=== PATIENT | female | born 1985 | race Caucasian/White ===

== ENCOUNTER 2017-09-20 13:53 | Emergency (ER) | payer MEDICAID ==
[~2017-09-20] VITALS: Ht 172.7 cm; Wt 96.7 kg
[~2017-09-20 13:53] MED LIST: ESCI20TA PO; GLYB2.5T4 PO; HYDR-569 PO; IBUP-1984 PO; LORA-512 PO; NAPR220C15 PO; ROSU20TA PO
[2017-09-20] MEDS ORDERED: ketorolac trometh inj. 60 MG/2 ML VIAL IM ONE (14:55)
[2017-09-20] MEDS ORDERED: ONDA4TAB9 SL (14:55)
[2017-09-20] MEDS ORDERED: dexamethasone 4mg tablet PO ONE (14:55)
[2017-09-20] MEDS ORDERED: VAL5T PO (14:55)
[2017-09-20] MEDS ORDERED: CYCL-1 PO (14:55)
[2017-09-20] MEDS ORDERED: diazepam 5mg tablet PO ONE (14:55)
[2017-09-20] MEDS ORDERED: METH4TAB3 PO (14:55)
[2017-09-20 15:26] VITALS: BP 125/65
== END 2017-09-20 15:27 | disposition home or self-care (01) ==
LOC: ER 13:58
DX: G89.29 Other chronic pain (principal); M25.551 Pain in right hip; M54.31 Sciatica, right side; G43.909 Migraine, unspecified, not intractable, without status migrainosus; Z88.0 Allergy status to penicillin; Z88.1 Allergy status to other antibiotic agents; Z79.899 Other long term (current) drug therapy
CPT/HCPCS: 96372; 99283; J1885; J8540

== ENCOUNTER 2017-09-23 17:07 | Inpatient (IN) | payer MEDICAID ==
[~2017-09-23] VITALS: Ht 172.7 cm; Wt 84.5 kg
[~2017-09-23 17:07] MED LIST changes: +CYCL-1 PO; +METH4TAB3 PO; +ONDA4TAB9 SL; +VAL5T PO; +etomidate 2mg/ml inj. ONE; +sod chloride 0.9% 10ml flush syringe IV ONE
[2017-09-23 17:42] LABS: BASOPHILS % (AUTO) 0 % (0-1); EOSINOPHILS % (AUTO) 0.1 % (0-6); HEMATOCRIT 44.4 % (35.0-45.0); HEMOGLOBIN 14.9 g/dl (12.0-16.0); LYMPHOCYTES # (AUTO) 0.3 X10'3 (1.1-4.8); LYMPHOCYTES % (AUTO) 2.7 % (21-51); MEAN CORPUSCULAR HEMOGLOBIN 28.4 PG (27.0-31.0); MEAN CORPUSCULAR HGB CONC 33.6 % (33.0-36.5); MEAN CORPUSCULAR VOLUME 84.6 FL (78-98); MEAN PLATELET VOLUME 7.9 FL (7.4-10.4); MONOCYTES # (AUTO) 0.1 X10'3 (0-0.9); MONOCYTES % (AUTO) 0.6 % (2-12); NEUTROPHILS # (AUTO) 11.6 X10'3 (1.8-7.7); NEUTROPHILS % (AUTO) 96.6 % (42-75); PLATELET COUNT 149 X10'3 (140-440); RED BLOOD COUNT 5.25 X10'6 (4.20-5.60); RED CELL DISTRIBUTION WIDTH 14.2 % (11.5-14.5)
[2017-09-23 17:54] LABS: ANISOCYTOSIS 1+; MICROCYTOSIS 1+; PLATELET ESTIMATE NORMAL; TOTAL CELLS COUNTED 100; TOXIC VACUOLATION 1+
[2017-09-23 17:57] LABS: ALANINE AMINOTRANSFERASE 106 U/L (12-78); ALBUMIN 3.6 G/DL (3.4-5.0); ALBUMIN/GLOBULIN RATIO 0.8 (1.1-1.5); ALKALINE PHOSPHATASE 155 IU/L (46-116); ANION GAP 22 (8-16); ASPARTATE AMINO TRANSFERASE 83 U/L (10-37); BILIRUBIN,TOTAL 2.1 MG/DL (0.1-1.0); BLOOD UREA NITROGEN 36 MG/DL (7-18); BUN/CREATININE RATIO 14.1 (6.6-38.0); CALCIUM 8.1 MG/DL (8.5-10.1); CHLORIDE 89 MMOL/L (99-107); CREATININE 2.55 MG/DL (0.40-0.90); GLUCOSE 130 MG/DL (70-104); POTASSIUM 3.3 MMOL/L (3.5-5.1); SODIUM 129 MMOL/L (135-145); TOTAL CARBON DIOXIDE 17.7 MMOL/L (24-32); TOTAL PROTEIN 8.4 G/DL (6.4-8.2); eGFR 22 ML/MIN
[2017-09-23 18:07] LABS: D-DIMER 16.32 MG/L FEU (0-0.50); INR 2.1 INR; PARTIAL THROMBOPLASTIN TIME 42 SECONDS (22-32); PROTHROMBIN TIME 20.7 SECONDS (9.0-12.0)
[2017-09-23 18:13] LABS: CLARITY,URINE CLOUDY (Clear); GLUCOSE, URINE 100 mg/dl (Neg); KETONES,URINE TRACE mg/dl (Neg); LEUKOCYTE ESTERASE ,URINE NEGATIVE (Neg); NITRITES, URINE NEGATIVE (Neg); OCCULT BLOOD,URINE LARGE (Neg); PROTEIN,URINE 100 mg/dl (Neg); UROBILINOGEN,URINE >=8.0 E.U/dL (0.2-1.0)
[2017-09-23 18:20] LABS: COLOR,URINE DARK YELLOW (Yellow); UA COLLECTION TYPE CLN CATCH MIDSTREAM
[2017-09-23] MEDS ORDERED: normal saline 1000ML IV soln IV ONE (18:20)
[2017-09-23 18:23] LABS: AMORPHOUS URATES 1+; BACTERIA,URINE 1+ /HPF (Neg); COARSE GRANULAR CAST 0-3 /LPF (NEGATIVE); MUCUS STRANDS FEW /LPF (Neg); SQUAMOUS EPITHELIAL CELL,UR MODERATE /LPF (FEW); WBC,URINE 0-4 /HPF (0-4)
[2017-09-23] MEDS ORDERED: CefTRIAXone 2gm/NS 100ml IVPB 100 ML IV ONE (18:30)
[2017-09-23] MEDS ORDERED: levoFLOXACIN-Levaquin 500mg/D5 100 ML IV ONE (18:30)
[2017-09-23] MEDS ORDERED: morphine 2 MG/ML inj. syringe IV ONE ×2 (19:15→21:55)
[2017-09-23] MEDS ORDERED: ondansetron/PF 4mg/2ml inj IV ONE ×2 (19:35→21:55)
[2017-09-23] MEDS ORDERED: vancomycin/NS 1 GM ADD-VANTAGE 250 ML IV ONE (20:05)
[2017-09-23] MEDS ORDERED: normal saline 1000ML IV soln IVB ONE (20:05)
[2017-09-23] MEDS: normal saline 1000ml 1,000 ML IV SCH ×2 (20:31→22:24)
[2017-09-23 20:45] LABS: ABG BASE EXCESS -12.5 mmol/L (-2.0-3.0); ABG HCO3 12.5 mmol/L (22.0-26.0); ABG OXYGEN SATURATION 91.4 % (95-98); ABG PCO2 (T) 26.8 mmHg (32.0-45.0); ABG PH (T) 7.288 (7.350-7.450); ABG PO2 (T) 66.1 mmHg (83-108); ALLEN'S TEST Positive; FCOHb 1.7 % (0.5-1.5); FMetHb 0.2 % (0.3-1.12); FO2Hb 89.7 % (94-100); PATIENT TEMPERATURE 37.1; TOTAL HEMOGLOBIN 12.4 G/dl (12.0-16.0)
[2017-09-23] MEDS ORDERED: acetaminophen 325mg tablet PO STA (20:47)
[2017-09-23] MEDS ORDERED: GLYB5TAB7 PO (21:19)
[2017-09-23] MEDS ORDERED: EMPA10TA PO (21:19)
[2017-09-23] MEDS ORDERED: INSU100I31 SQ ×2 (21:19)
[2017-09-23] MEDS ORDERED: INSU100C10 SQ (21:21)
[2017-09-23] MEDS ORDERED: HYDR-565 PO (21:21)
[2017-09-23 21:44] LABS: URINE AMPHETAMINE SCREEN NEGATIVE (Neg); URINE BARBITUATE SCREEN POSITIVE (Neg); URINE BENZODIAZEPINES SCREEN POSITIVE (Neg); URINE CANNABINOID SCREEN NEGATIVE (Neg); URINE COCAINE SCREEN NEGATIVE (Neg); URINE METHADONE SCREEN NEGATIVE (Neg); URINE OPIATE SCREEN NEGATIVE (Neg); URINE PHENCYCLIDINE SCREEN NEGATIVE (Neg)
[2017-09-23 21:45] LABS: ETHANOL < 0.010 GM/DL (0.0-0.010)
[2017-09-23] MEDS ORDERED: morphine 5 MG/ML injection IV ONE (21:55)
[2017-09-23] MEDS ORDERED: acetaminophen 325mg tablet PO PRN ×2 (22:25)
[2017-09-23] MEDS ORDERED: magnesium hydroxide 30ml (MOM) UD suspension PO PRN (22:25)
[2017-09-23] MEDS: K, MAG and/or Phos replacement - Verify level? MC SCH (22:25)
[2017-09-23] MEDS ORDERED: morphine 2 MG/ML inj. syringe IV PRN (22:25)
[2017-09-23] MEDS ORDERED: potassium Cl 20 mEq SR tablet PO PRN ×2 (22:25)
[2017-09-23] MEDS ORDERED: ondansetron/PF 4mg/2ml inj IV PRN (22:25)
[2017-09-24] VITALS (23 sets, daily range): BP systolic 69–128; BP diastolic 34–63
[2017-09-24 01:15] LABS: OXYGEN SATURATION (MIXED VEN) 76.3 % (60-80); PO2 MIXED VENOUS (TEMP COR) 45.9 mmHg (35-46)
[2017-09-24] MEDS: normal saline 1000ml 1,000 ML IV SCH ×3 (01:57→11:21)
[2017-09-24] MEDS: morphine 2 MG/ML inj. syringe IV PRN ×2 (01:57→05:14)
[2017-09-24] MEDS ORDERED: dextrose ORAL solution 15 GM/59 ML bottle PO ONE (03:05)
[2017-09-24] MEDS ORDERED: dextrose 50%-water 50ml dispensing syringe IV ONE (03:42)
[2017-09-24] MEDS ORDERED: dextrose ORAL solution 15 GM/59 ML bottle PO PRN ×2 (03:45)
[2017-09-24] MEDS ORDERED: glucagon, human recombinant 1mg kit SUBCUT PRN (03:45)
[2017-09-24] MEDS ORDERED: dextrose 50%-water 50ml dispensing syringe IV PRN ×2 (03:45)
[2017-09-24 03:48] LABS: BASOPHILS % (AUTO) 0.2 % (0-1); EOSINOPHILS % (AUTO) 0.1 % (0-6); HEMATOCRIT 35.7 % (35.0-45.0); HEMOGLOBIN 12.1 g/dl (12.0-16.0); LYMPHOCYTES # (AUTO) 0.4 X10'3 (1.1-4.8); LYMPHOCYTES % (AUTO) 6.2 % (21-51); MEAN CORPUSCULAR HEMOGLOBIN 28.7 PG (27.0-31.0); MEAN CORPUSCULAR VOLUME 84.6 FL (78-98); MEAN PLATELET VOLUME 8.5 FL (7.4-10.4); MONOCYTES # (AUTO) 0.2 X10'3 (0-0.9); MONOCYTES % (AUTO) 3.5 % (2-12); NEUTROPHILS # (AUTO) 5.2 X10'3 (1.8-7.7); PLATELET COUNT 95 X10'3 (140-440); RED BLOOD COUNT 4.22 X10'6 (4.20-5.60); RED CELL DISTRIBUTION WIDTH 14.3 % (11.5-14.5); WHITE BLOOD COUNT 5.7 X10'3 (4.5-11.0)
[2017-09-24] MEDS ORDERED: normal saline 1000ml 1,000 ML IVB ONE (03:56)
[2017-09-24 04:04] LABS: HEMOGLOBIN A1C 8.6 % (4.5-6.2)
[2017-09-24 04:08] LABS: ALANINE AMINOTRANSFERASE 89 U/L (12-78); ALBUMIN 2.5 G/DL (3.4-5.0); ALBUMIN/GLOBULIN RATIO 0.7 (1.1-1.5); ALKALINE PHOSPHATASE 160 IU/L (46-116); ANION GAP 20 (8-16); ASPARTATE AMINO TRANSFERASE 86 U/L (10-37); BILIRUBIN,TOTAL 1.9 MG/DL (0.1-1.0); BLOOD UREA NITROGEN 29 MG/DL (7-18); BUN/CREATININE RATIO 22.7 (6.6-38.0); CALCIUM 6.7 MG/DL (8.5-10.1); CHLORIDE 100 MMOL/L (99-107); CREATININE 1.28 MG/DL (0.40-0.90); PHOSPHORUS 4.1 MG/DL (2.3-4.5); SODIUM 136 MMOL/L (135-145); TOTAL CARBON DIOXIDE 15.7 MMOL/L (24-32); TOTAL PROTEIN 6.2 G/DL (6.4-8.2); eGFR 48 ML/MIN
[2017-09-24 04:16] LABS: GLUCOSE 47 MG/DL (70-104)
[2017-09-24 04:17] LABS: POTASSIUM 2.7 MMOL/L (3.5-5.1)
[2017-09-24] MEDS ORDERED: magnesium 2GM in 50ml NS 50 ML IV PRN ×2 (04:20→07:10)
[2017-09-24] MEDS ORDERED: magnesium 4gm in 100ml NS 100 ML IV PRN ×2 (04:20→07:10)
[2017-09-24] MEDS: potassium Cl 40MEQ/250ML bag 250 ML IV SCH (05:15)
[2017-09-24 07:13] LABS: TOTAL CELLS COUNTED 100
[2017-09-24 07:14] LABS: BURR CELLS 1+; PLATELET ESTIMATE DECREASED; TOXIC GRANULATION 1+; TOXIC VACUOLATION 1+
[2017-09-24] MEDS ORDERED: lactobacillus rhamnosus 10,000 MMU CELLS/CAPSULE PO SCH (07:30)
[2017-09-24] MEDS ORDERED: CefTRIAXone 2gm/NS 100ml IVPB 100 ML IV SCH (08:00)
[2017-09-24] MEDS ORDERED: vancomycin/NS 1 GM ADD-VANTAGE 250 ML IV SCH ×2 (08:00→20:00)
[2017-09-24] MEDS ORDERED: vancomycin inj 1,250 MG in normal saline 250ml IV soln 250 ML IV SCH ×2 (08:00→11:00)
[2017-09-24] MEDS ORDERED: iohexol 350MG/ML 100ml bottle IV ONE (08:16)
[2017-09-24 08:45] LABS: VANCOMYCIN,RANDOM 4.4 UG/ML
[2017-09-24] MEDS: LACTOBACILLUS RHAMNOSUS GG 15 billion unit sprinkle caps PO SCH (10:27)
[2017-09-24] MEDS: MESSAGE TO NURSING IV NR (10:28)
[2017-09-24] MEDS: K, MAG and/or Phos replacement - Verify level? MC SCH (10:31)
[2017-09-24 10:48] LABS: MAGNESIUM 1.4 MG/DL (1.5-2.4)
[2017-09-24] MEDS: pantoprazole 40 MG vial IV SCH (11:17)
[2017-09-24] MEDS: linezolid 600mg/300ml PREMIX 300 ML IV SCH ×2 (11:18→20:56)
[2017-09-24] MEDS: NORepinephrine 8mg/ 250ml NS 250 ML IV SCH ×4 (11:22→21:19)
[2017-09-24] MEDS: potassium Cl 40MEQ/250ML bag 250 ML IV PRN (11:22)
[2017-09-24 11:52] LABS: CREATINE KINASE 613 U/L (26-192)
[2017-09-24 13:25] LABS: ABG BASE EXCESS -19.4 mmol/L (-2.0-3.0); ABG HCO3 11.1 mmol/L (22.0-26.0); ABG OXYGEN SATURATION 92.2 % (95-98); ABG PCO2 (T) 44.4 mmHg (32.0-45.0); ABG PH (T) 7.017 (7.350-7.450); ABG PO2 (T) 73.6 mmHg (83-108); FCOHb 0.5 % (0.5-1.5); FMetHb 0.3 % (0.3-1.12); FO2Hb 91.5 % (94-100); MINUTE VOLUME 14 L/min; PEEP 5 cm H2O; RESPIRATORY RATE 14 b/min; RESPIRATORY RATE (OBSERVED) 28 b/min; TIDAL VOLUME 500 mL; TOTAL HEMOGLOBIN 12.7 G/dl (12.0-16.0)
[2017-09-24 13:30] LABS: OXYGEN SATURATION (MIXED VEN) 79.6 % (60-80); PO2 MIXED VENOUS (TEMP COR) 52.5 mmHg (35-46)
[2017-09-24] MEDS: FENTANYL-0.9 % NACL/PF 100 ML IV PRN (14:26)
[2017-09-24] MEDS: hydrocortisone sod succ/PF 100mg/2ml inj. IV SCH ×2 (14:37→20:57)
[2017-09-24] MEDS: midazolam 100mg in NS 100ml 100 ML IV PRN ×2 (15:17→20:56)
[2017-09-24] MEDS: NORMAL SALINE IV SCH ×2 (16:25→19:43)
[2017-09-24] MEDS: DEXTROSE 5% IV SCH ×2 (16:25→19:43)
[2017-09-24] MEDS: SODIUM BICARBONATE IV SCH ×2 (16:25→19:43)
[2017-09-24] MEDS: ipratropium/albuterol 3ml nebule NEB SCH ×3 (17:02→23:18)
[2017-09-24 17:49] LABS: BASOPHILS % (AUTO) 0.1 % (0-1); EOSINOPHILS % (AUTO) 0 % (0-6); HEMATOCRIT 35.8 % (35.0-45.0); HEMOGLOBIN 12.1 g/dl (12.0-16.0); LYMPHOCYTES # (AUTO) 0.3 X10'3 (1.1-4.8); MEAN CORPUSCULAR HEMOGLOBIN 28.6 PG (27.0-31.0); MEAN CORPUSCULAR HGB CONC 33.7 % (33.0-36.5); MEAN CORPUSCULAR VOLUME 84.9 FL (78-98); MEAN PLATELET VOLUME 8.9 FL (7.4-10.4); MONOCYTES # (AUTO) 0.5 X10'3 (0-0.9); NEUTROPHILS # (AUTO) 11.9 X10'3 (1.8-7.7); NEUTROPHILS % (AUTO) 93.9 % (42-75); PLATELET COUNT 95 X10'3 (140-440); RED BLOOD COUNT 4.22 X10'6 (4.20-5.60); RED CELL DISTRIBUTION WIDTH 14.9 % (11.5-14.5); WHITE BLOOD COUNT 12.7 X10'3 (4.5-11.0)
[2017-09-24 17:58] LABS: INR 1.6 INR; PROTHROMBIN TIME 16.4 SECONDS (9.0-12.0)
[2017-09-24 18:04] LABS: ALANINE AMINOTRANSFERASE 130 U/L (12-78); ALBUMIN 2.1 G/DL (3.4-5.0); ALBUMIN/GLOBULIN RATIO 0.6 (1.1-1.5); ALKALINE PHOSPHATASE 242 IU/L (46-116); ANION GAP 15 (8-16); ASPARTATE AMINO TRANSFERASE 174 U/L (10-37); BILIRUBIN,TOTAL 3.1 MG/DL (0.1-1.0); BLOOD UREA NITROGEN 32 MG/DL (7-18); BUN/CREATININE RATIO 21.9 (6.6-38.0); CALCIUM 6.4 MG/DL (8.5-10.1); CHLORIDE 102 MMOL/L (99-107); CREATININE 1.46 MG/DL (0.40-0.90); GLUCOSE 119 MG/DL (70-104); POTASSIUM 4.2 MMOL/L (3.5-5.1); SODIUM 133 MMOL/L (135-145); TOTAL CARBON DIOXIDE 15.7 MMOL/L (24-32); TOTAL PROTEIN 5.8 G/DL (6.4-8.2); eGFR 41 ML/MIN
[2017-09-24 18:25] LABS: MAGNESIUM 2.7 MG/DL (1.5-2.4)
[2017-09-24 20:36] LABS: ABG BASE EXCESS -16.6 mmol/L (-2.0-3.0); ABG HCO3 14.4 mmol/L (22.0-26.0); ABG OXYGEN SATURATION 87.6 % (95-98); ABG PCO2 (T) 63.4 mmHg (32.0-45.0); ABG PO2 (T) 69.7 mmHg (83-108); FCOHb 0.3 % (0.5-1.5); FMetHb 0.5 % (0.3-1.12); FO2Hb 86.9 % (94-100); MINUTE VOLUME 14 L/min; PATIENT TEMPERATURE 39.5; PEEP 14 cm H2O; RESPIRATORY RATE 30 b/min; RESPIRATORY RATE (OBSERVED) 30 b/min; TIDAL VOLUME 350 mL; TOTAL HEMOGLOBIN 12.5 G/dl (12.0-16.0)
[2017-09-24] MEDS ORDERED: sodium bicarbonate (8.4%) 1 mEq/ml syringe ONE (20:39)
[2017-09-24] MEDS ORDERED: sodium bicarbonate (8.4%) 1 mEq/ml syringe IV ONE (20:40)
[2017-09-24 20:55] LABS: BASOPHILS % (AUTO) 0 % (0-1); EOSINOPHILS % (AUTO) 0 % (0-6); HEMATOCRIT 34.8 % (35.0-45.0); HEMOGLOBIN 11.6 g/dl (12.0-16.0); LYMPHOCYTES # (AUTO) 0.4 X10'3 (1.1-4.8); LYMPHOCYTES % (AUTO) 2.7 % (21-51); MEAN CORPUSCULAR HEMOGLOBIN 28.4 PG (27.0-31.0); MEAN CORPUSCULAR HGB CONC 33.4 % (33.0-36.5); MEAN CORPUSCULAR VOLUME 85.1 FL (78-98); MEAN PLATELET VOLUME 8.6 FL (7.4-10.4); MONOCYTES # (AUTO) 0.2 X10'3 (0-0.9); MONOCYTES % (AUTO) 1.3 % (2-12); NEUTROPHILS # (AUTO) 13.8 X10'3 (1.8-7.7); PLATELET COUNT 102 X10'3 (140-440); RED BLOOD COUNT 4.09 X10'6 (4.20-5.60); RED CELL DISTRIBUTION WIDTH 14.9 % (11.5-14.5); WHITE BLOOD COUNT 14.4 X10'3 (4.5-11.0)
[2017-09-24] MEDS: vasopressin inj. 60 UNIT in normal saline 100ml IV soln 97 ML IV SCH (20:58)
[2017-09-24 21:10] LABS: ALANINE AMINOTRANSFERASE 122 U/L (12-78); ALBUMIN 2.1 G/DL (3.4-5.0); ALBUMIN/GLOBULIN RATIO 0.6 (1.1-1.5); ALKALINE PHOSPHATASE 254 IU/L (46-116); ANION GAP 15 (8-16); ASPARTATE AMINO TRANSFERASE 159 U/L (10-37); BILIRUBIN,TOTAL 3.5 MG/DL (0.1-1.0); BLOOD UREA NITROGEN 33 MG/DL (7-18); BUN/CREATININE RATIO 16.8 (6.6-38.0); CALCIUM 6.3 MG/DL (8.5-10.1); CHLORIDE 103 MMOL/L (99-107); CREATININE 1.96 MG/DL (0.40-0.90); GLUCOSE 169 MG/DL (70-104); MAGNESIUM 2.6 MG/DL (1.5-2.4); POTASSIUM 4.4 MMOL/L (3.5-5.1); SODIUM 134 MMOL/L (135-145); TOTAL CARBON DIOXIDE 15.8 MMOL/L (24-32); TOTAL PROTEIN 5.7 G/DL (6.4-8.2); eGFR 29 ML/MIN
[2017-09-24] MEDS: acetaminophen 1,000mg/100ml IV 100 ML IV PRN (21:43)
[2017-09-24] MEDS: CISatracurium besylate inj. 200 MG in dextrose 5%-water 180 ML IV PRN (22:11)
[2017-09-24] MEDS: vancomycin inj 1,250 MG in normal saline 250ml IV soln 250 ML IV SCH (22:58)
[2017-09-25] VITALS (24 sets, daily range): BP systolic 96–134; BP diastolic 37–64
[2017-09-25 00:01] LABS: PLATELET ESTIMATE DECREASED; TOTAL CELLS COUNTED 100
[2017-09-25 00:03] LABS: BURR CELLS 1+
[2017-09-25] MEDS: NORepinephrine 8mg/ 250ml NS 250 ML IV SCH ×4 (01:09→23:20)
[2017-09-25] MEDS: hydrocortisone sod succ/PF 100mg/2ml inj. IV SCH ×4 (02:52→20:47)
[2017-09-25] MEDS: ipratropium/albuterol 3ml nebule NEB SCH ×6 (03:01→22:56)
[2017-09-25 03:09] LABS: BASOPHILS % (AUTO) 0 % (0-1); EOSINOPHILS # (AUTO) 0.2 X10'3 (0-0.9); EOSINOPHILS % (AUTO) 1.4 % (0-6); HEMATOCRIT 33.6 % (35.0-45.0); HEMOGLOBIN 11.3 g/dl (12.0-16.0); LYMPHOCYTES # (AUTO) 0.5 X10'3 (1.1-4.8); LYMPHOCYTES % (AUTO) 3.5 % (21-51); MEAN CORPUSCULAR HEMOGLOBIN 28.4 PG (27.0-31.0); MEAN CORPUSCULAR HGB CONC 33.5 % (33.0-36.5); MEAN CORPUSCULAR VOLUME 84.7 FL (78-98); MEAN PLATELET VOLUME 8.9 FL (7.4-10.4); MONOCYTES # (AUTO) 0.6 X10'3 (0-0.9); MONOCYTES % (AUTO) 4.3 % (2-12); NEUTROPHILS # (AUTO) 12.5 X10'3 (1.8-7.7); NEUTROPHILS % (AUTO) 90.8 % (42-75); PLATELET COUNT 91 X10'3 (140-440); RED BLOOD COUNT 3.96 X10'6 (4.20-5.60); RED CELL DISTRIBUTION WIDTH 14.9 % (11.5-14.5); WHITE BLOOD COUNT 13.8 X10'3 (4.5-11.0)
[2017-09-25 03:11] LABS: ABG BASE EXCESS -16.2 mmol/L (-2.0-3.0); ABG HCO3 14.3 mmol/L (22.0-26.0); ABG PCO2 (T) 60.8 mmHg (32.0-45.0); ABG PH (T) 7.006 (7.350-7.450); ABG PO2 (T) 88.9 mmHg (83-108); FCOHb 0.3 % (0.5-1.5); FMetHb 0.5 % (0.3-1.12); FO2Hb 92.3 % (94-100); MINUTE VOLUME 13 L/min; PATIENT TEMPERATURE 39.6; PEEP 14 cm H2O; RESPIRATORY RATE 34 b/min; RESPIRATORY RATE (OBSERVED) 34 b/min; TIDAL VOLUME 350 mL
[2017-09-25 03:21] LABS: ALANINE AMINOTRANSFERASE 108 U/L (12-78); ALBUMIN/GLOBULIN RATIO 0.6 (1.1-1.5); ALKALINE PHOSPHATASE 281 IU/L (46-116); ANION GAP 13 (8-16); ASPARTATE AMINO TRANSFERASE 141 U/L (10-37); BLOOD UREA NITROGEN 36 MG/DL (7-18); BUN/CREATININE RATIO 15.9 (6.6-38.0); CHLORIDE 103 MMOL/L (99-107); CREATININE 2.27 MG/DL (0.40-0.90); GLUCOSE 202 MG/DL (70-104); MAGNESIUM 2.4 MG/DL (1.5-2.4); PHOSPHORUS 4.8 MG/DL (2.3-4.5); POTASSIUM 4.1 MMOL/L (3.5-5.1); SODIUM 135 MMOL/L (135-145); TOTAL CARBON DIOXIDE 19.2 MMOL/L (24-32); TOTAL PROTEIN 5.5 G/DL (6.4-8.2); eGFR 25 ML/MIN
[2017-09-25 03:35] LABS: D-DIMER 23.85 MG/L FEU (0-0.50); INR 1.5 INR; PARTIAL THROMBOPLASTIN TIME 55 SECONDS (22-32); PROTHROMBIN TIME 15.4 SECONDS (9.0-12.0)
[2017-09-25] MEDS ORDERED: calcium chloride inj. 1,000 MG in normal saline 100ml IV soln 90 ML IV ONE (03:35)
[2017-09-25] MEDS: NORMAL SALINE IV SCH (03:58)
[2017-09-25] MEDS: DEXTROSE 5% IV SCH (03:58)
[2017-09-25] MEDS: SODIUM BICARBONATE IV SCH (03:58)
[2017-09-25 04:10] LABS: ABG BASE EXCESS -13.8 mmol/L (-2.0-3.0); ABG HCO3 15.3 mmol/L (22.0-26.0); ABG OXYGEN SATURATION 95.2 % (95-98); ABG PCO2 (T) 53.4 mmHg (32.0-45.0); ABG PH (T) 7.088 (7.350-7.450); ABG PO2 (T) 91.9 mmHg (83-108); FCOHb 0.3 % (0.5-1.5); FMetHb 0.2 % (0.3-1.12); FO2Hb 94.7 % (94-100); MINUTE VOLUME 15 L/min; PATIENT TEMPERATURE 39.2; PEEP 14 cm H2O; RESPIRATORY RATE 34 b/min; RESPIRATORY RATE (OBSERVED) 34 b/min; TIDAL VOLUME 400 mL
[2017-09-25] MEDS ORDERED: calcium chloride 100 MG/1 ML inj IV ONE (04:11)
[2017-09-25 04:26] LABS: PLATELET COUNT 91 X10'3 (140-440)
[2017-09-25] MEDS: midazolam 100mg in NS 100ml 100 ML IV PRN ×2 (04:28→08:08)
[2017-09-25] MEDS: vancomycin inj 1,250 MG in normal saline 250ml IV soln 250 ML IV SCH ×3 (04:39→15:48)
[2017-09-25] MEDS: FENTANYL-0.9 % NACL/PF 100 ML IV PRN ×2 (05:23→20:48)
[2017-09-25] MEDS ORDERED: furosemide 10 MG/1 ML 10ml inj IV STA (06:47)
[2017-09-25] MEDS: LACTOBACILLUS RHAMNOSUS GG 15 billion unit sprinkle caps PO SCH (06:55)
[2017-09-25] MEDS ORDERED: VANCOMYCIN LEVEL IV NR ×2 (07:30→10:30)
[2017-09-25] MEDS: K, MAG and/or Phos replacement - Verify level? MC SCH (08:00)
[2017-09-25 08:07] LABS: AMYLASE 67 U/L (25-115); CREATINE KINASE 1748 U/L (26-192)
[2017-09-25] MEDS: pantoprazole 40 MG vial IV SCH (08:08)
[2017-09-25] MEDS: linezolid 600mg/300ml PREMIX 300 ML IV SCH ×2 (08:09→21:18)
[2017-09-25] MEDS: albumin (Human) 5% 250 ML IV solution IV SCH ×3 (08:09→21:19)
[2017-09-25] MEDS: insulin Lispro (HumaLOG) vial - multi-dose SQ SCH ×3 (08:24→20:56)
[2017-09-25 09:34] LABS: CALCIUM 6.6 MG/DL (8.5-10.1)
[2017-09-25] MEDS ORDERED: vancomycin inj 500 MG in normal saline 100ml IV soln 100 ML IV STA (09:37)
[2017-09-25] MEDS: MESSAGE TO NURSING IV NR (10:02)
[2017-09-25 10:20] LABS: OXYGEN SATURATION (MIXED VEN) 82.8 % (60-80); PO2 MIXED VENOUS (TEMP COR) 52.1 mmHg (35-46)
[2017-09-25] MEDS ORDERED: VANCOMYCIN LEVEL IV ONE (12:30)
[2017-09-25] MEDS ORDERED: heparin 10,000 units/1 ML INJ IV ONE (13:00)
[2017-09-25] MEDS: acetaminophen 1,000mg/100ml IV 100 ML IV PRN (13:58)
[2017-09-25] MEDS: CISatracurium besylate inj. 200 MG in dextrose 5%-water 180 ML IV PRN (13:58)
[2017-09-25] MEDS: mineral oil/petrolatum ophthal oint EACHEYE SCH ×2 (14:18→20:46)
[2017-09-25] MEDS: Duosol 4K/3 Ca (w/calcium) 5,000 ML HE SCH ×5 (14:21→23:19)
[2017-09-25 14:48] LABS: BASOPHILS % (AUTO) 0.1 % (0-1); EOSINOPHILS % (AUTO) 0.2 % (0-6); HEMATOCRIT 29.7 % (35.0-45.0); HEMOGLOBIN 10.1 g/dl (12.0-16.0); LYMPHOCYTES # (AUTO) 0.8 X10'3 (1.1-4.8); LYMPHOCYTES % (AUTO) 5.8 % (21-51); MEAN CORPUSCULAR HEMOGLOBIN 28.5 PG (27.0-31.0); MEAN CORPUSCULAR HGB CONC 34.2 % (33.0-36.5); MEAN CORPUSCULAR VOLUME 83.2 FL (78-98); MEAN PLATELET VOLUME 8.1 FL (7.4-10.4); MONOCYTES # (AUTO) 0.9 X10'3 (0-0.9); MONOCYTES % (AUTO) 6.6 % (2-12); NEUTROPHILS # (AUTO) 11.5 X10'3 (1.8-7.7); NEUTROPHILS % (AUTO) 87.3 % (42-75); PLATELET COUNT 78 X10'3 (140-440); RED BLOOD COUNT 3.57 X10'6 (4.20-5.60); RED CELL DISTRIBUTION WIDTH 14.9 % (11.5-14.5); WHITE BLOOD COUNT 13.2 X10'3 (4.5-11.0)
[2017-09-25 14:59] LABS: PLATELET ESTIMATE DECREASED; TOTAL CELLS COUNTED 100
[2017-09-25 15:00] LABS: ANISOCYTOSIS 1+; MICROCYTOSIS 1+; TOXIC GRANULATION 2+
[2017-09-25 15:06] LABS: VANCOMYCIN,RANDOM 59.4 UG/ML
[2017-09-25 15:36] LABS: TROPONIN I 0.04 NG/ML (0.0-0.05)
[2017-09-25 16:38] LABS: BASOPHILS % (AUTO) 0 % (0-1); EOSINOPHILS % (AUTO) 0 % (0-6); HEMATOCRIT 29.5 % (35.0-45.0); HEMOGLOBIN 10.1 g/dl (12.0-16.0); LYMPHOCYTES # (AUTO) 0.7 X10'3 (1.1-4.8); LYMPHOCYTES % (AUTO) 4.9 % (21-51); MEAN CORPUSCULAR HEMOGLOBIN 28.3 PG (27.0-31.0); MEAN CORPUSCULAR VOLUME 83.2 FL (78-98); MEAN PLATELET VOLUME 8.4 FL (7.4-10.4); MONOCYTES # (AUTO) 0.7 X10'3 (0-0.9); NEUTROPHILS # (AUTO) 13.2 X10'3 (1.8-7.7); NEUTROPHILS % (AUTO) 90.1 % (42-75); PLATELET COUNT 72 X10'3 (140-440); RED BLOOD COUNT 3.55 X10'6 (4.20-5.60); RED CELL DISTRIBUTION WIDTH 14.9 % (11.5-14.5); WHITE BLOOD COUNT 14.6 X10'3 (4.5-11.0)
[2017-09-25 16:50] LABS: ANION GAP 11 (8-16); BLOOD UREA NITROGEN 42 MG/DL (7-18); BUN/CREATININE RATIO 15.2 (6.6-38.0); CHLORIDE 105 MMOL/L (99-107); CREATININE 2.77 MG/DL (0.40-0.90); GLUCOSE 166 MG/DL (70-104); POTASSIUM 3.8 MMOL/L (3.5-5.1); SODIUM 135 MMOL/L (135-145); TOTAL CARBON DIOXIDE 18.9 MMOL/L (24-32); eGFR 20 ML/MIN
[2017-09-25 17:24] LABS: BASOPHILS % (AUTO) 0.3 % (0-1); EOSINOPHILS % (AUTO) 0 % (0-6); HEMATOCRIT 28.8 % (35.0-45.0); HEMOGLOBIN 9.8 g/dl (12.0-16.0); LYMPHOCYTES # (AUTO) 0.8 X10'3 (1.1-4.8); LYMPHOCYTES % (AUTO) 6.1 % (21-51); MEAN CORPUSCULAR HEMOGLOBIN 28.4 PG (27.0-31.0); MEAN CORPUSCULAR HGB CONC 34.1 % (33.0-36.5); MEAN CORPUSCULAR VOLUME 83.4 FL (78-98); MONOCYTES # (AUTO) 0.5 X10'3 (0-0.9); MONOCYTES % (AUTO) 3.9 % (2-12); NEUTROPHILS # (AUTO) 11.9 X10'3 (1.8-7.7); NEUTROPHILS % (AUTO) 89.7 % (42-75); PLATELET COUNT 69 X10'3 (140-440); RED BLOOD COUNT 3.45 X10'6 (4.20-5.60); RED CELL DISTRIBUTION WIDTH 15.2 % (11.5-14.5); WHITE BLOOD COUNT 13.3 X10'3 (4.5-11.0)
[2017-09-25 17:36] LABS: ALBUMIN 2.2 G/DL (3.4-5.0); ANION GAP 11 (8-16); BLOOD UREA NITROGEN 41 MG/DL (7-18); BUN/CREATININE RATIO 15.1 (6.6-38.0); CHLORIDE 105 MMOL/L (99-107); CREATININE 2.71 MG/DL (0.40-0.90); GLUCOSE 159 MG/DL (70-104); PHOSPHORUS 3.8 MG/DL (2.3-4.5); POTASSIUM 3.7 MMOL/L (3.5-5.1); SODIUM 136 MMOL/L (135-145); TOTAL CARBON DIOXIDE 19.6 MMOL/L (24-32); eGFR 20 ML/MIN
[2017-09-25 18:11] LABS: ABG BASE EXCESS -10.3 mmol/L (-2.0-3.0); ABG HCO3 16.1 mmol/L (22.0-26.0); ABG PCO2 (T) 38.4 mmHg (32.0-45.0); ABG PH (T) 7.243 (7.350-7.450); ABG PO2 (T) 126.2 mmHg (83-108); FCOHb 0.3 % (0.5-1.5); FMetHb 0.3 % (0.3-1.12); FO2Hb 97.4 % (94-100); PATIENT TEMPERATURE 37.7; PEEP 12 cm H2O; RESPIRATORY RATE 34 b/min; TIDAL VOLUME 400 mL; TOTAL HEMOGLOBIN 10.9 G/dl (12.0-16.0)
[2017-09-25 18:30] LABS: BASOPHILS # (AUTO) 0.1 X10'3 (0-0.2); BASOPHILS % (AUTO) 0.5 % (0-1); EOSINOPHILS % (AUTO) 0 % (0-6); HEMATOCRIT 29.3 % (35.0-45.0); LYMPHOCYTES # (AUTO) 0.8 X10'3 (1.1-4.8); LYMPHOCYTES % (AUTO) 5.5 % (21-51); MEAN CORPUSCULAR HEMOGLOBIN 28.5 PG (27.0-31.0); MEAN CORPUSCULAR HGB CONC 34.1 % (33.0-36.5); MEAN CORPUSCULAR VOLUME 83.5 FL (78-98); MEAN PLATELET VOLUME 8.2 FL (7.4-10.4); MONOCYTES # (AUTO) 0.2 X10'3 (0-0.9); MONOCYTES % (AUTO) 1.5 % (2-12); NEUTROPHILS # (AUTO) 12.9 X10'3 (1.8-7.7); NEUTROPHILS % (AUTO) 92.5 % (42-75); PLATELET COUNT 72 X10'3 (140-440); RED BLOOD COUNT 3.51 X10'6 (4.20-5.60); RED CELL DISTRIBUTION WIDTH 15.2 % (11.5-14.5); WHITE BLOOD COUNT 13.9 X10'3 (4.5-11.0)
[2017-09-25 18:41] LABS: ALBUMIN 2.3 G/DL (3.4-5.0); ANION GAP 13 (8-16); BLOOD UREA NITROGEN 40 MG/DL (7-18); BUN/CREATININE RATIO 14.2 (6.6-38.0); CHLORIDE 104 MMOL/L (99-107); CREATININE 2.81 MG/DL (0.40-0.90); GLUCOSE 156 MG/DL (70-104); PHOSPHORUS 3.6 MG/DL (2.3-4.5); POTASSIUM 3.7 MMOL/L (3.5-5.1); SODIUM 137 MMOL/L (135-145); TOTAL CARBON DIOXIDE 20.2 MMOL/L (24-32); eGFR 19 ML/MIN
[2017-09-25 20:47] LABS: BASOPHILS % (AUTO) 0.3 % (0-1); EOSINOPHILS % (AUTO) 0 % (0-6); HEMATOCRIT 29.5 % (35.0-45.0); LYMPHOCYTES # (AUTO) 0.9 X10'3 (1.1-4.8); LYMPHOCYTES % (AUTO) 6.1 % (21-51); MEAN CORPUSCULAR HEMOGLOBIN 28.4 PG (27.0-31.0); MEAN CORPUSCULAR HGB CONC 33.9 % (33.0-36.5); MEAN CORPUSCULAR VOLUME 83.7 FL (78-98); MEAN PLATELET VOLUME 8.3 FL (7.4-10.4); MONOCYTES # (AUTO) 0.7 X10'3 (0-0.9); MONOCYTES % (AUTO) 4.9 % (2-12); NEUTROPHILS # (AUTO) 13.3 X10'3 (1.8-7.7); NEUTROPHILS % (AUTO) 88.7 % (42-75); PLATELET COUNT 71 X10'3 (140-440); RED BLOOD COUNT 3.53 X10'6 (4.20-5.60); RED CELL DISTRIBUTION WIDTH 14.9 % (11.5-14.5)
[2017-09-25] MEDS: vasopressin inj. 60 UNIT in normal saline 100ml IV soln 97 ML IV SCH (20:47)
[2017-09-25] MEDS: Insulin Detemir pen SQ SCH (20:57)
[2017-09-25 20:59] LABS: ALBUMIN 2.3 G/DL (3.4-5.0); ANION GAP 13 (8-16); BLOOD UREA NITROGEN 39 MG/DL (7-18); BUN/CREATININE RATIO 14.9 (6.6-38.0); CHLORIDE 104 MMOL/L (99-107); CREATININE 2.62 MG/DL (0.40-0.90); GLUCOSE 153 MG/DL (70-104); PHOSPHORUS 3.5 MG/DL (2.3-4.5); POTASSIUM 3.6 MMOL/L (3.5-5.1); SODIUM 136 MMOL/L (135-145); eGFR 21 ML/MIN
[2017-09-26] VITALS (24 sets, daily range): BP systolic 98–150; BP diastolic 46–70
[2017-09-26] MEDS: Duosol 4K/3 Ca (w/calcium) 5,000 ML HE SCH ×8 (01:15→23:37)
[2017-09-26] MEDS: midazolam 100mg in NS 100ml 100 ML IV PRN ×3 (01:16→23:06)
[2017-09-26 02:11] LABS: ABG BASE EXCESS -7.8 mmol/L (-2.0-3.0); ABG HCO3 18.1 mmol/L (22.0-26.0); ABG OXYGEN SATURATION 93.2 % (95-98); ABG PCO2 (T) 37.7 mmHg (32.0-45.0); ABG PH (T) 7.297 (7.350-7.450); ABG PO2 (T) 67.5 mmHg (83-108); FCOHb 0.3 % (0.5-1.5); FMetHb 0.1 % (0.3-1.12); FO2Hb 92.8 % (94-100); MINUTE VOLUME 15 L/min; PATIENT TEMPERATURE 36.5; PEEP 8 cm H2O; RESPIRATORY RATE 34 b/min; RESPIRATORY RATE (OBSERVED) 34 b/min; TIDAL VOLUME 400 mL; TOTAL HEMOGLOBIN 10.4 G/dl (12.0-16.0)
[2017-09-26] MEDS: hydrocortisone sod succ/PF 100mg/2ml inj. IV SCH ×4 (02:26→19:47)
[2017-09-26] MEDS: mineral oil/petrolatum ophthal oint EACHEYE SCH ×4 (02:26→18:57)
[2017-09-26] MEDS: insulin Lispro (HumaLOG) vial - multi-dose SQ SCH ×3 (02:39→14:35)
[2017-09-26] MEDS: NORepinephrine 8mg/ 250ml NS 250 ML IV SCH ×3 (02:40→23:33)
[2017-09-26] MEDS: ipratropium/albuterol 3ml nebule NEB SCH ×6 (02:52→23:04)
[2017-09-26 03:09] LABS: ALANINE AMINOTRANSFERASE 87 U/L (12-78); ALBUMIN 2.5 G/DL (3.4-5.0); ALBUMIN/GLOBULIN RATIO 0.8 (1.1-1.5); ALKALINE PHOSPHATASE 287 IU/L (46-116); ANION GAP 15 (8-16); ASPARTATE AMINO TRANSFERASE 110 U/L (10-37); BLOOD UREA NITROGEN 35 MG/DL (7-18); BUN/CREATININE RATIO 13.5 (6.6-38.0); CHLORIDE 102 MMOL/L (99-107); GLUCOSE 174 MG/DL (70-104); MAGNESIUM 2.1 MG/DL (1.5-2.4); PHOSPHORUS 3.1 MG/DL (2.3-4.5); POTASSIUM 3.6 MMOL/L (3.5-5.1); SODIUM 137 MMOL/L (135-145); TOTAL CARBON DIOXIDE 19.8 MMOL/L (24-32); TOTAL PROTEIN 5.7 G/DL (6.4-8.2); eGFR 21 ML/MIN
[2017-09-26 03:23] LABS: BASOPHILS % (AUTO) 0 % (0-1); EOSINOPHILS % (AUTO) 0.1 % (0-6); HEMATOCRIT 27.9 % (35.0-45.0); HEMOGLOBIN 9.6 g/dl (12.0-16.0); LYMPHOCYTES # (AUTO) 0.8 X10'3 (1.1-4.8); LYMPHOCYTES % (AUTO) 5.5 % (21-51); MEAN CORPUSCULAR HEMOGLOBIN 28.4 PG (27.0-31.0); MEAN CORPUSCULAR HGB CONC 34.4 % (33.0-36.5); MEAN CORPUSCULAR VOLUME 82.6 FL (78-98); MEAN PLATELET VOLUME 8.6 FL (7.4-10.4); MONOCYTES # (AUTO) 0.8 X10'3 (0-0.9); MONOCYTES % (AUTO) 5.4 % (2-12); NEUTROPHILS # (AUTO) 12.4 X10'3 (1.8-7.7); PLATELET COUNT 60 X10'3 (140-440); RED BLOOD COUNT 3.38 X10'6 (4.20-5.60); RED CELL DISTRIBUTION WIDTH 15.1 % (11.5-14.5)
[2017-09-26] MEDS: CISatracurium besylate inj. 200 MG in dextrose 5%-water 180 ML IV PRN ×2 (04:25→23:33)
[2017-09-26 05:01] LABS: OXYGEN SATURATION (MIXED VEN) 71.4 % (60-80); PO2 MIXED VENOUS (TEMP COR) 36.4 mmHg (35-46)
[2017-09-26] MEDS ORDERED: vancomycin/NS 1 GM ADD-VANTAGE 250 ML IV PRN ×2 (06:05→15:20)
[2017-09-26] MEDS: LACTOBACILLUS RHAMNOSUS GG 15 billion unit sprinkle caps PO SCH (07:38)
[2017-09-26] MEDS: methylnaltrexone br 12mg/0.6ml inj***SubQ only SQ SCH (07:38)
[2017-09-26] MEDS: pantoprazole 40 MG vial IV SCH (07:38)
[2017-09-26] MEDS: linezolid 600mg/300ml PREMIX 300 ML IV SCH ×2 (07:38→19:47)
[2017-09-26 07:58] LABS: BANDS% (MANUAL) 5 % (0-10); LYMPHOCYTES % (MANUAL) 6 % (21-51); MONOCYTES % (MANUAL) 4 % (2-12); NEUTROPHILS % (MANUAL) 82 % (42-75); PLATELET ESTIMATE DECREASED; TOTAL CELLS COUNTED 100
[2017-09-26 07:59] LABS: TOXIC GRANULATION 2+
[2017-09-26] MEDS: K, MAG and/or Phos replacement - Verify level? MC SCH (08:00)
[2017-09-26 08:57] LABS: BASOPHILS % (AUTO) 0.1 % (0-1); EOSINOPHILS % (AUTO) 0.1 % (0-6); HEMATOCRIT 27.8 % (35.0-45.0); HEMOGLOBIN 9.6 g/dl (12.0-16.0); LYMPHOCYTES # (AUTO) 1.1 X10'3 (1.1-4.8); LYMPHOCYTES % (AUTO) 7.4 % (21-51); MEAN CORPUSCULAR HEMOGLOBIN 28.5 PG (27.0-31.0); MEAN CORPUSCULAR HGB CONC 34.5 % (33.0-36.5); MEAN CORPUSCULAR VOLUME 82.5 FL (78-98); MEAN PLATELET VOLUME 8.8 FL (7.4-10.4); MONOCYTES # (AUTO) 0.6 X10'3 (0-0.9); NEUTROPHILS # (AUTO) 13.6 X10'3 (1.8-7.7); NEUTROPHILS % (AUTO) 88.4 % (42-75); PLATELET COUNT 53 X10'3 (140-440); RED BLOOD COUNT 3.37 X10'6 (4.20-5.60); RED CELL DISTRIBUTION WIDTH 15.2 % (11.5-14.5); WHITE BLOOD COUNT 15.3 X10'3 (4.5-11.0)
[2017-09-26 09:21] LABS: ALBUMIN 2.5 G/DL (3.4-5.0); ANION GAP 12 (8-16); BLOOD UREA NITROGEN 34 MG/DL (7-18); CHLORIDE 101 MMOL/L (99-107); CREATINE KINASE 1792 U/L (26-192); CREATININE 2.42 MG/DL (0.40-0.90); GLUCOSE 194 MG/DL (70-104); MAGNESIUM 1.9 MG/DL (1.5-2.4); PHOSPHORUS 2.6 MG/DL (2.3-4.5); POTASSIUM 3.4 MMOL/L (3.5-5.1); SODIUM 134 MMOL/L (135-145); TOTAL CARBON DIOXIDE 21.3 MMOL/L (24-32); eGFR 23 ML/MIN
[2017-09-26 09:30] LABS: ABG BASE EXCESS -7.3 mmol/L (-2.0-3.0); ABG HCO3 17.9 mmol/L (22.0-26.0); ABG OXYGEN SATURATION 96.2 % (95-98); ABG PCO2 (T) 35.3 mmHg (32.0-45.0); ABG PH (T) 7.324 (7.350-7.450); ABG PO2 (T) 87.4 mmHg (83-108); FCOHb 0.3 % (0.5-1.5); FMetHb 0.1 % (0.3-1.12); FO2Hb 95.8 % (94-100); MINUTE VOLUME 15 L/min; PEEP 8 cm H2O; RESPIRATORY RATE 34 b/min; RESPIRATORY RATE (OBSERVED) 34 b/min; TIDAL VOLUME 400 mL; TOTAL HEMOGLOBIN 10.2 G/dl (12.0-16.0)
[2017-09-26] MEDS: potassium Cl 40MEQ/250ML bag 250 ML IV SCH (11:16)
[2017-09-26 14:44] LABS: BASOPHILS % (AUTO) 0.1 % (0-1); EOSINOPHILS % (AUTO) 0 % (0-6); HEMATOCRIT 27.8 % (35.0-45.0); HEMOGLOBIN 9.6 g/dl (12.0-16.0); LYMPHOCYTES # (AUTO) 1.2 X10'3 (1.1-4.8); MEAN CORPUSCULAR HEMOGLOBIN 28.4 PG (27.0-31.0); MEAN CORPUSCULAR HGB CONC 34.3 % (33.0-36.5); MEAN CORPUSCULAR VOLUME 82.8 FL (78-98); MEAN PLATELET VOLUME 8.5 FL (7.4-10.4); MONOCYTES # (AUTO) 0.6 X10'3 (0-0.9); MONOCYTES % (AUTO) 3.4 % (2-12); NEUTROPHILS # (AUTO) 15.1 X10'3 (1.8-7.7); NEUTROPHILS % (AUTO) 89.5 % (42-75); PLATELET COUNT 53 X10'3 (140-440); RED BLOOD COUNT 3.36 X10'6 (4.20-5.60); WHITE BLOOD COUNT 16.8 X10'3 (4.5-11.0)
[2017-09-26 14:54] LABS: ALBUMIN 2.5 G/DL (3.4-5.0); ANION GAP 12 (8-16); BLOOD UREA NITROGEN 34 MG/DL (7-18); BUN/CREATININE RATIO 13.5 (6.6-38.0); CHLORIDE 102 MMOL/L (99-107); CREATININE 2.51 MG/DL (0.40-0.90); GLUCOSE 180 MG/DL (70-104); MAGNESIUM 2.1 MG/DL (1.5-2.4); PHOSPHORUS 1.9 MG/DL (2.3-4.5); POTASSIUM 3.8 MMOL/L (3.5-5.1); SODIUM 134 MMOL/L (135-145); TOTAL CARBON DIOXIDE 20.4 MMOL/L (24-32); eGFR 22 ML/MIN
[2017-09-26] MEDS: heparin 10,000 units/1 ML INJ IV PRN ×2 (14:58→21:13)
[2017-09-26] MEDS ORDERED: VANCOMYCIN LEVEL IV NR (15:00)
[2017-09-26] MEDS ORDERED: vancomycin inj 500 MG in normal saline 100ml IV soln 100 ML IV PRN (15:19)
[2017-09-26] MEDS ORDERED: sodium phosphate inj. 30 MMOL in dextrose 5%-water 250 ML IV PRN (15:37)
[2017-09-26 15:47] LABS: TOTAL CELLS COUNTED 100
[2017-09-26 15:49] LABS: PLATELET ESTIMATE DECREASED; TOXIC GRANULATION 1+
[2017-09-26 15:51] LABS: SMUDGE CELLS 1+
[2017-09-26 17:55] LABS: ABG BASE EXCESS -7.3 mmol/L (-2.0-3.0); ABG HCO3 17.5 mmol/L (22.0-26.0); ABG OXYGEN SATURATION 96.2 % (95-98); ABG PCO2 (T) 33.2 mmHg (32.0-45.0); ABG PH (T) 7.341 (7.350-7.450); FCOHb 0.3 % (0.5-1.5); FO2Hb 95.9 % (94-100); MINUTE VOLUME 15 L/min; PEEP 5 cm H2O; RESPIRATORY RATE 34 b/min; RESPIRATORY RATE (OBSERVED) 34 b/min; TIDAL VOLUME 400 mL; TOTAL HEMOGLOBIN 10.4 G/dl (12.0-16.0)
[2017-09-26] MEDS: sodium phosphate inj. 15 MMOL in dextrose 5%-water 150 ML IV PRN (18:31)
[2017-09-26] MEDS: FENTANYL-0.9 % NACL/PF 100 ML IV PRN (18:43)
[2017-09-26] MEDS: insulin regular, human vial - multi-dose SQ SCH (20:22)
[2017-09-26] MEDS: Insulin Detemir pen SQ SCH (20:23)
[2017-09-26 20:45] LABS: BASOPHILS % (AUTO) 0.2 % (0-1); EOSINOPHILS % (AUTO) 0.1 % (0-6); HEMATOCRIT 28.3 % (35.0-45.0); HEMOGLOBIN 9.7 g/dl (12.0-16.0); LYMPHOCYTES # (AUTO) 1.3 X10'3 (1.1-4.8); LYMPHOCYTES % (AUTO) 7.2 % (21-51); MEAN CORPUSCULAR HEMOGLOBIN 28.6 PG (27.0-31.0); MEAN CORPUSCULAR HGB CONC 34.2 % (33.0-36.5); MEAN CORPUSCULAR VOLUME 83.6 FL (78-98); MEAN PLATELET VOLUME 8.4 FL (7.4-10.4); MONOCYTES # (AUTO) 0.7 X10'3 (0-0.9); MONOCYTES % (AUTO) 3.7 % (2-12); NEUTROPHILS # (AUTO) 16.3 X10'3 (1.8-7.7); NEUTROPHILS % (AUTO) 88.8 % (42-75); PLATELET COUNT 54 X10'3 (140-440); RED BLOOD COUNT 3.38 X10'6 (4.20-5.60); RED CELL DISTRIBUTION WIDTH 15.3 % (11.5-14.5); WHITE BLOOD COUNT 18.4 X10'3 (4.5-11.0)
[2017-09-26 20:57] LABS: ALBUMIN 2.6 G/DL (3.4-5.0); ANION GAP 12 (8-16); BLOOD UREA NITROGEN 35 MG/DL (7-18); BUN/CREATININE RATIO 13.8 (6.6-38.0); CHLORIDE 100 MMOL/L (99-107); CREATININE 2.54 MG/DL (0.40-0.90); GLUCOSE 207 MG/DL (70-104); MAGNESIUM 2.1 MG/DL (1.5-2.4); POTASSIUM 3.4 MMOL/L (3.5-5.1); SODIUM 134 MMOL/L (135-145); TOTAL CARBON DIOXIDE 21.6 MMOL/L (24-32); eGFR 22 ML/MIN
[2017-09-26] MEDS: potassium Cl 40MEQ/250ML bag 250 ML IV PRN (21:41)
[2017-09-27] VITALS (24 sets, daily range): BP systolic 82–134; BP diastolic 44–68
[2017-09-27] MEDS: hydrocortisone sod succ/PF 100mg/2ml inj. IV SCH ×4 (02:18→19:54)
[2017-09-27] MEDS: mineral oil/petrolatum ophthal oint EACHEYE SCH ×4 (02:18→19:48)
[2017-09-27] MEDS ORDERED: albumin (human) 25% 100 ML IV solution IV PRN (02:20)
[2017-09-27] MEDS: insulin regular, human vial - multi-dose SQ SCH ×2 (02:42→09:13)
[2017-09-27 02:45] LABS: BASOPHILS # (AUTO) 0.1 X10'3 (0-0.2); BASOPHILS % (AUTO) 0.3 % (0-1); EOSINOPHILS % (AUTO) 0 % (0-6); HEMATOCRIT 30.3 % (35.0-45.0); HEMOGLOBIN 10.4 g/dl (12.0-16.0); LYMPHOCYTES # (AUTO) 1.4 X10'3 (1.1-4.8); LYMPHOCYTES % (AUTO) 6.1 % (21-51); MEAN CORPUSCULAR HEMOGLOBIN 28.8 PG (27.0-31.0); MEAN CORPUSCULAR HGB CONC 34.3 % (33.0-36.5); MEAN CORPUSCULAR VOLUME 83.8 FL (78-98); MEAN PLATELET VOLUME 8.9 FL (7.4-10.4); MONOCYTES % (AUTO) 4.4 % (2-12); NEUTROPHILS % (AUTO) 89.2 % (42-75); PLATELET COUNT 56 X10'3 (140-440); RED BLOOD COUNT 3.61 X10'6 (4.20-5.60); RED CELL DISTRIBUTION WIDTH 15.4 % (11.5-14.5); WHITE BLOOD COUNT 22.4 X10'3 (4.5-11.0)
[2017-09-27 02:59] LABS: ALANINE AMINOTRANSFERASE 105 U/L (12-78); ALBUMIN 2.8 G/DL (3.4-5.0); ALBUMIN/GLOBULIN RATIO 0.7 (1.1-1.5); ALKALINE PHOSPHATASE 355 IU/L (46-116); ANION GAP 15 (8-16); ASPARTATE AMINO TRANSFERASE 118 U/L (10-37); BILIRUBIN,TOTAL 6.5 MG/DL (0.1-1.0); BLOOD UREA NITROGEN 37 MG/DL (7-18); BUN/CREATININE RATIO 14.5 (6.6-38.0); CHLORIDE 99 MMOL/L (99-107); CREATININE 2.56 MG/DL (0.40-0.90); GLUCOSE 228 MG/DL (70-104); MAGNESIUM 2.3 MG/DL (1.5-2.4); PHOSPHORUS 1.9 MG/DL (2.3-4.5); POTASSIUM 3.6 MMOL/L (3.5-5.1); SODIUM 135 MMOL/L (135-145); TOTAL CARBON DIOXIDE 20.8 MMOL/L (24-32); eGFR 21 ML/MIN
[2017-09-27 03:00] LABS: VANCOMYCIN,RANDOM 19.1 UG/ML
[2017-09-27] MEDS: VANCOMYCIN LEVEL IV SCH (03:00)
[2017-09-27] MEDS: heparin 10,000 units/1 ML INJ IV PRN ×3 (03:09→21:16)
[2017-09-27] MEDS: ipratropium/albuterol 3ml nebule NEB SCH ×6 (04:00→23:14)
[2017-09-27 04:16] LABS: ABG BASE EXCESS -5.7 mmol/L (-2.0-3.0); ABG HCO3 19.5 mmol/L (22.0-26.0); ABG OXYGEN SATURATION 96.3 % (95-98); ABG PCO2 (T) 35.6 mmHg (32.0-45.0); ABG PH (T) 7.352 (7.350-7.450); ABG PO2 (T) 80.6 mmHg (83-108); FCOHb 0.1 % (0.5-1.5); FMetHb 0.2 % (0.3-1.12); MINUTE VOLUME 15 L/min; PATIENT TEMPERATURE 36.1; PEEP 5 cm H2O; RESPIRATORY RATE 34 b/min; RESPIRATORY RATE (OBSERVED) 34 b/min; TIDAL VOLUME 400 mL; TOTAL HEMOGLOBIN 10.8 G/dl (12.0-16.0)
[2017-09-27] MEDS: sodium phosphate inj. 15 MMOL in dextrose 5%-water 150 ML IV PRN ×2 (04:58→22:35)
[2017-09-27] MEDS: Duosol 4K/3 Ca (w/calcium) 5,000 ML HE SCH ×9 (04:59→22:39)
[2017-09-27] MEDS: K, MAG and/or Phos replacement - Verify level? MC SCH (08:00)
[2017-09-27] MEDS: LACTOBACILLUS RHAMNOSUS GG 15 billion unit sprinkle caps PO SCH (08:07)
[2017-09-27] MEDS: pantoprazole 40 MG vial IV SCH (08:07)
[2017-09-27] MEDS: midazolam 100mg in NS 100ml 100 ML IV PRN ×3 (08:07→22:33)
[2017-09-27] MEDS: linezolid 600mg/300ml PREMIX 300 ML IV SCH ×2 (08:08→19:54)
[2017-09-27 09:24] LABS: BASOPHILS % (AUTO) 0.2 % (0-1); EOSINOPHILS # (AUTO) 0.3 X10'3 (0-0.9); EOSINOPHILS % (AUTO) 1.8 % (0-6); HEMATOCRIT 29.9 % (35.0-45.0); HEMOGLOBIN 10.3 g/dl (12.0-16.0); LYMPHOCYTES # (AUTO) 1.2 X10'3 (1.1-4.8); LYMPHOCYTES % (AUTO) 6.8 % (21-51); MEAN CORPUSCULAR HEMOGLOBIN 28.8 PG (27.0-31.0); MEAN CORPUSCULAR HGB CONC 34.4 % (33.0-36.5); MEAN CORPUSCULAR VOLUME 83.7 FL (78-98); MEAN PLATELET VOLUME 9.2 FL (7.4-10.4); MONOCYTES # (AUTO) 0.5 X10'3 (0-0.9); MONOCYTES % (AUTO) 2.8 % (2-12); NEUTROPHILS # (AUTO) 16.1 X10'3 (1.8-7.7); NEUTROPHILS % (AUTO) 88.4 % (42-75); PLATELET COUNT 54 X10'3 (140-440); RED BLOOD COUNT 3.57 X10'6 (4.20-5.60); RED CELL DISTRIBUTION WIDTH 15.2 % (11.5-14.5); WHITE BLOOD COUNT 18.2 X10'3 (4.5-11.0)
[2017-09-27] MEDS: metoclopramide 5 mg/ml inj IV SCH ×3 (09:28→19:54)
[2017-09-27 09:36] LABS: ALBUMIN 3.3 G/DL (3.4-5.0); ANION GAP 15 (8-16); BLOOD UREA NITROGEN 39 MG/DL (7-18); CHLORIDE 97 MMOL/L (99-107); CREATININE 2.44 MG/DL (0.40-0.90); GLUCOSE 295 MG/DL (70-104); MAGNESIUM 2.1 MG/DL (1.5-2.4); PHOSPHORUS 2.6 MG/DL (2.3-4.5); POTASSIUM 3.7 MMOL/L (3.5-5.1); SODIUM 133 MMOL/L (135-145); TOTAL CARBON DIOXIDE 21.4 MMOL/L (24-32); eGFR 23 ML/MIN
[2017-09-27] MEDS: insulin regular, human 100 UNITS in normal saline 100ml IV soln 99 ML IV SCH ×18 (12:29→23:09)
[2017-09-27 13:16] LABS: ABG BASE EXCESS -4.6 mmol/L (-2.0-3.0); ABG HCO3 20.3 mmol/L (22.0-26.0); ABG OXYGEN SATURATION 94.8 % (95-98); ABG PCO2 (T) 36.7 mmHg (32.0-45.0); ABG PH (T) 7.361 (7.350-7.450); ABG PO2 (T) 73.3 mmHg (83-108); FCOHb 0.3 % (0.5-1.5); FMetHb 0.1 % (0.3-1.12); FO2Hb 94.4 % (94-100); MINUTE VOLUME 15 L/min; PEEP 5 cm H2O; RESPIRATORY RATE 34 b/min; RESPIRATORY RATE (OBSERVED) 34 b/min; TOTAL HEMOGLOBIN 11.2 G/dl (12.0-16.0)
[2017-09-27] MEDS: FENTANYL-0.9 % NACL/PF 100 ML IV PRN (14:46)
[2017-09-27 15:21] LABS: BASOPHILS % (AUTO) 0.3 % (0-1); EOSINOPHILS # (AUTO) 0.2 X10'3 (0-0.9); EOSINOPHILS % (AUTO) 1.1 % (0-6); HEMATOCRIT 30.4 % (35.0-45.0); HEMOGLOBIN 10.5 g/dl (12.0-16.0); LYMPHOCYTES # (AUTO) 0.8 X10'3 (1.1-4.8); MEAN CORPUSCULAR HEMOGLOBIN 28.8 PG (27.0-31.0); MEAN CORPUSCULAR HGB CONC 34.5 % (33.0-36.5); MEAN CORPUSCULAR VOLUME 83.3 FL (78-98); MEAN PLATELET VOLUME 9.3 FL (7.4-10.4); MONOCYTES # (AUTO) 0.5 X10'3 (0-0.9); MONOCYTES % (AUTO) 2.9 % (2-12); NEUTROPHILS # (AUTO) 14.8 X10'3 (1.8-7.7); NEUTROPHILS % (AUTO) 90.7 % (42-75); PLATELET COUNT 62 X10'3 (140-440); RED BLOOD COUNT 3.65 X10'6 (4.20-5.60); RED CELL DISTRIBUTION WIDTH 14.8 % (11.5-14.5); WHITE BLOOD COUNT 16.3 X10'3 (4.5-11.0)
[2017-09-27 15:40] LABS: ALBUMIN 3.2 G/DL (3.4-5.0); ANION GAP 14 (8-16); BLOOD UREA NITROGEN 46 MG/DL (7-18); CHLORIDE 97 MMOL/L (99-107); GLUCOSE 254 MG/DL (70-104); MAGNESIUM 2.1 MG/DL (1.5-2.4); PHOSPHORUS 2.6 MG/DL (2.3-4.5); POTASSIUM 3.8 MMOL/L (3.5-5.1); SODIUM 134 MMOL/L (135-145); eGFR 20 ML/MIN
[2017-09-27] MEDS ORDERED: normal saline 1000ml 1,000 ML IV ONE ×2 (17:00→18:20)
[2017-09-27 17:56] LABS: ABG BASE EXCESS -3.5 mmol/L (-2.0-3.0); ABG HCO3 22.3 mmol/L (22.0-26.0); ABG OXYGEN SATURATION 84.6 % (95-98); ABG PH (T) 7.332 (7.350-7.450); ABG PO2 (T) 49.8 mmHg (83-108); FCOHb 0.3 % (0.5-1.5); FMetHb 0.1 % (0.3-1.12); FO2Hb 84.3 % (94-100); MINUTE VOLUME 13 L/min; PEEP 5 cm H2O; RESPIRATORY RATE 25 b/min; RESPIRATORY RATE (OBSERVED) 25 b/min; TIDAL VOLUME 400 mL; TOTAL HEMOGLOBIN 10.3 G/dl (12.0-16.0)
[2017-09-27 20:42] LABS: BASOPHILS # (AUTO) 0.1 X10'3 (0-0.2); BASOPHILS % (AUTO) 0.4 % (0-1); EOSINOPHILS % (AUTO) 0.1 % (0-6); HEMATOCRIT 26.9 % (35.0-45.0); HEMOGLOBIN 9.2 g/dl (12.0-16.0); LYMPHOCYTES # (AUTO) 0.8 X10'3 (1.1-4.8); LYMPHOCYTES % (AUTO) 5.2 % (21-51); MEAN CORPUSCULAR HEMOGLOBIN 28.4 PG (27.0-31.0); MEAN CORPUSCULAR HGB CONC 34.1 % (33.0-36.5); MEAN CORPUSCULAR VOLUME 83.1 FL (78-98); MEAN PLATELET VOLUME 8.9 FL (7.4-10.4); MONOCYTES # (AUTO) 0.4 X10'3 (0-0.9); MONOCYTES % (AUTO) 2.4 % (2-12); NEUTROPHILS # (AUTO) 14.2 X10'3 (1.8-7.7); NEUTROPHILS % (AUTO) 91.9 % (42-75); PLATELET COUNT 61 X10'3 (140-440); RED BLOOD COUNT 3.23 X10'6 (4.20-5.60); RED CELL DISTRIBUTION WIDTH 14.9 % (11.5-14.5); WHITE BLOOD COUNT 15.4 X10'3 (4.5-11.0)
[2017-09-27 20:52] LABS: ALBUMIN 2.7 G/DL (3.4-5.0); ANION GAP 8 (8-16); BLOOD UREA NITROGEN 46 MG/DL (7-18); BUN/CREATININE RATIO 18.4 (6.6-38.0); CHLORIDE 103 MMOL/L (99-107); GLUCOSE 159 MG/DL (70-104); MAGNESIUM 1.9 MG/DL (1.5-2.4); POTASSIUM 3.9 MMOL/L (3.5-5.1); SODIUM 136 MMOL/L (135-145); TOTAL CARBON DIOXIDE 25.2 MMOL/L (24-32); eGFR 22 ML/MIN
[2017-09-28] VITALS (24 sets, daily range): BP systolic 91–136; BP diastolic 48–58
[2017-09-28 00:01] LABS: TOTAL CELLS COUNTED 100
[2017-09-28 00:02] LABS: PLATELET ESTIMATE DECREASED; TOXIC GRANULATION 3+; TOXIC VACUOLATION 1+
[2017-09-28] MEDS: insulin regular, human 100 UNITS in normal saline 100ml IV soln 99 ML IV SCH ×28 (00:09→23:18)
[2017-09-28 00:20] LABS: BASOPHILS # (AUTO) 0.1 X10'3 (0-0.2); BASOPHILS % (AUTO) 0.3 % (0-1); EOSINOPHILS % (AUTO) 0.2 % (0-6); HEMATOCRIT 25.5 % (35.0-45.0); HEMOGLOBIN 8.9 g/dl (12.0-16.0); LYMPHOCYTES % (AUTO) 5.5 % (21-51); MEAN CORPUSCULAR HEMOGLOBIN 28.8 PG (27.0-31.0); MEAN CORPUSCULAR VOLUME 82.3 FL (78-98); MEAN PLATELET VOLUME 9.7 FL (7.4-10.4); MONOCYTES # (AUTO) 0.6 X10'3 (0-0.9); NEUTROPHILS # (AUTO) 17.2 X10'3 (1.8-7.7); PLATELET COUNT 71 X10'3 (140-440); RED CELL DISTRIBUTION WIDTH 14.5 % (11.5-14.5); WHITE BLOOD COUNT 18.9 X10'3 (4.5-11.0)
[2017-09-28 00:27] LABS: ALBUMIN 2.6 G/DL (3.4-5.0); ANION GAP 9 (8-16); BLOOD UREA NITROGEN 49 MG/DL (7-18); BUN/CREATININE RATIO 18.1 (6.6-38.0); CHLORIDE 102 MMOL/L (99-107); GLUCOSE 188 MG/DL (70-104); MAGNESIUM 1.9 MG/DL (1.5-2.4); PHOSPHORUS 2.1 MG/DL (2.3-4.5); POTASSIUM 3.9 MMOL/L (3.5-5.1); SODIUM 134 MMOL/L (135-145); TOTAL CARBON DIOXIDE 22.9 MMOL/L (24-32); eGFR 20 ML/MIN
[2017-09-28 00:40] LABS: ABG BASE EXCESS -4.8 mmol/L (-2.0-3.0); ABG HCO3 21.1 mmol/L (22.0-26.0); ABG OXYGEN SATURATION 97.2 % (95-98); ABG PCO2 (T) 42.8 mmHg (32.0-45.0); ABG PH (T) 7.311 (7.350-7.450); ABG PO2 (T) 103.6 mmHg (83-108); FMetHb 0.1 % (0.3-1.12); FO2Hb 97.1 % (94-100); MINUTE VOLUME 13 L/min; PATIENT TEMPERATURE 37.4; PEEP 10 cm H2O; RESPIRATORY RATE 25 b/min; RESPIRATORY RATE (OBSERVED) 25 b/min; TIDAL VOLUME 400 mL; TOTAL HEMOGLOBIN 10.3 G/dl (12.0-16.0)
[2017-09-28 01:33] LABS: ALBUMIN 2.6 G/DL (3.4-5.0); ANION GAP 10 (8-16); BLOOD UREA NITROGEN 49 MG/DL (7-18); BUN/CREATININE RATIO 18.8 (6.6-38.0); CHLORIDE 103 MMOL/L (99-107); GLUCOSE 189 MG/DL (70-104); MAGNESIUM 1.9 MG/DL (1.5-2.4); PHOSPHORUS 2.1 MG/DL (2.3-4.5); POTASSIUM 3.8 MMOL/L (3.5-5.1); SODIUM 136 MMOL/L (135-145); TOTAL CARBON DIOXIDE 23.2 MMOL/L (24-32); eGFR 21 ML/MIN
[2017-09-28] MEDS: mineral oil/petrolatum ophthal oint EACHEYE SCH ×4 (02:02→21:52)
[2017-09-28] MEDS: metoclopramide 5 mg/ml inj IV SCH ×4 (02:02→20:00)
[2017-09-28] MEDS: hydrocortisone sod succ/PF 100mg/2ml inj. IV SCH ×4 (02:02→21:23)
[2017-09-28 02:04] LABS: BASOPHILS % (AUTO) 0 % (0-1); EOSINOPHILS # (AUTO) 0.2 X10'3 (0-0.9); EOSINOPHILS % (AUTO) 1.2 % (0-6); HEMATOCRIT 25.4 % (35.0-45.0); HEMOGLOBIN 8.6 g/dl (12.0-16.0); LYMPHOCYTES % (AUTO) 5.8 % (21-51); MEAN CORPUSCULAR HEMOGLOBIN 28.5 PG (27.0-31.0); MEAN CORPUSCULAR HGB CONC 34.1 % (33.0-36.5); MEAN CORPUSCULAR VOLUME 83.7 FL (78-98); MEAN PLATELET VOLUME 9.4 FL (7.4-10.4); MONOCYTES # (AUTO) 0.5 X10'3 (0-0.9); MONOCYTES % (AUTO) 2.7 % (2-12); NEUTROPHILS # (AUTO) 15.6 X10'3 (1.8-7.7); NEUTROPHILS % (AUTO) 90.3 % (42-75); PLATELET COUNT 66 X10'3 (140-440); RED BLOOD COUNT 3.03 X10'6 (4.20-5.60); RED CELL DISTRIBUTION WIDTH 15.6 % (11.5-14.5); WHITE BLOOD COUNT 17.2 X10'3 (4.5-11.0)
[2017-09-28] MEDS: Duosol 4K/3 Ca (w/calcium) 5,000 ML HE SCH ×8 (02:11→23:26)
[2017-09-28 02:44] LABS: PLATELET ESTIMATE DECREASED; TOTAL CELLS COUNTED 100
[2017-09-28 02:45] LABS: TOXIC GRANULATION 3+
[2017-09-28] MEDS: VANCOMYCIN LEVEL IV SCH (03:00)
[2017-09-28 03:06] LABS: BASOPHILS % (AUTO) 0.2 % (0-1); EOSINOPHILS # (AUTO) 0.3 X10'3 (0-0.9); EOSINOPHILS % (AUTO) 1.5 % (0-6); HEMATOCRIT 26.1 % (35.0-45.0); HEMOGLOBIN 8.9 g/dl (12.0-16.0); LYMPHOCYTES # (AUTO) 1.3 X10'3 (1.1-4.8); LYMPHOCYTES % (AUTO) 7.5 % (21-51); MEAN CORPUSCULAR HEMOGLOBIN 28.5 PG (27.0-31.0); MEAN CORPUSCULAR HGB CONC 34.1 % (33.0-36.5); MEAN CORPUSCULAR VOLUME 83.8 FL (78-98); MEAN PLATELET VOLUME 9.2 FL (7.4-10.4); MONOCYTES # (AUTO) 0.6 X10'3 (0-0.9); MONOCYTES % (AUTO) 3.4 % (2-12); NEUTROPHILS # (AUTO) 15.5 X10'3 (1.8-7.7); NEUTROPHILS % (AUTO) 87.4 % (42-75); PLATELET COUNT 71 X10'3 (140-440); RED BLOOD COUNT 3.11 X10'6 (4.20-5.60); RED CELL DISTRIBUTION WIDTH 15.6 % (11.5-14.5); WHITE BLOOD COUNT 17.7 X10'3 (4.5-11.0)
[2017-09-28 03:14] LABS: INR 1.1 INR; PROTHROMBIN TIME 10.9 SECONDS (9.0-12.0)
[2017-09-28] MEDS: ipratropium/albuterol 3ml nebule NEB SCH ×6 (03:37→23:07)
[2017-09-28 03:43] LABS: ALANINE AMINOTRANSFERASE 94 U/L (12-78); ALBUMIN 2.6 G/DL (3.4-5.0); ALBUMIN/GLOBULIN RATIO 0.6 (1.1-1.5); ALKALINE PHOSPHATASE 302 IU/L (46-116); ANION GAP 11 (8-16); ASPARTATE AMINO TRANSFERASE 99 U/L (10-37); BILIRUBIN,TOTAL 2.3 MG/DL (0.1-1.0); BLOOD UREA NITROGEN 50 MG/DL (7-18); BUN/CREATININE RATIO 19.2 (6.6-38.0); CALCIUM 8.5 MG/DL (8.5-10.1); CHLORIDE 102 MMOL/L (99-107); GLUCOSE 169 MG/DL (70-104); PHOSPHORUS 2.2 MG/DL (2.3-4.5); POTASSIUM 3.7 MMOL/L (3.5-5.1); SODIUM 135 MMOL/L (135-145); TOTAL CARBON DIOXIDE 22.5 MMOL/L (24-32); TOTAL PROTEIN 6.7 G/DL (6.4-8.2); VANCOMYCIN,RANDOM 12.2 UG/ML; eGFR 21 ML/MIN
[2017-09-28] MEDS: heparin 10,000 units/1 ML INJ IV PRN ×4 (03:45→22:21)
[2017-09-28] MEDS: NORepinephrine 8mg/ 250ml NS 250 ML IV SCH (03:49)
[2017-09-28 05:01] LABS: ABG BASE EXCESS -3.3 mmol/L (-2.0-3.0); ABG OXYGEN SATURATION 98.1 % (95-98); ABG PH (T) 7.357 (7.350-7.450); ABG PO2 (T) 115.5 mmHg (83-108); FCOHb 0.3 % (0.5-1.5); FO2Hb 97.8 % (94-100); MINUTE VOLUME 12 L/min; PATIENT TEMPERATURE 36.6; PEEP 10 cm H2O; RESPIRATORY RATE 25 b/min; RESPIRATORY RATE (OBSERVED) 26 b/min; TIDAL VOLUME 400 mL; TOTAL HEMOGLOBIN 9.8 G/dl (12.0-16.0)
[2017-09-28 05:05] LABS: PO2 MIXED VENOUS (TEMP COR) 36.6 mmHg (35-46)
[2017-09-28] MEDS: pantoprazole 40 MG vial IV SCH (07:45)
[2017-09-28] MEDS: LACTOBACILLUS RHAMNOSUS GG 15 billion unit sprinkle caps PO SCH (07:45)
[2017-09-28] MEDS: K, MAG and/or Phos replacement - Verify level? MC SCH (07:46)
[2017-09-28] MEDS: linezolid 600mg/300ml PREMIX 300 ML IV SCH ×2 (07:46→21:23)
[2017-09-28] MEDS: methylnaltrexone br 12mg/0.6ml inj***SubQ only SQ SCH (07:46)
[2017-09-28] MEDS: midazolam 100mg in NS 100ml 100 ML IV PRN (07:46)
[2017-09-28 08:56] LABS: BASOPHILS % (AUTO) 0.2 % (0-1); EOSINOPHILS # (AUTO) 0.3 X10'3 (0-0.9); EOSINOPHILS % (AUTO) 1.3 % (0-6); HEMATOCRIT 25.7 % (35.0-45.0); HEMOGLOBIN 8.8 g/dl (12.0-16.0); LYMPHOCYTES # (AUTO) 1.7 X10'3 (1.1-4.8); MEAN CORPUSCULAR HEMOGLOBIN 28.3 PG (27.0-31.0); MEAN CORPUSCULAR HGB CONC 34.1 % (33.0-36.5); MEAN CORPUSCULAR VOLUME 83.1 FL (78-98); MEAN PLATELET VOLUME 9.2 FL (7.4-10.4); MONOCYTES # (AUTO) 0.8 X10'3 (0-0.9); MONOCYTES % (AUTO) 3.7 % (2-12); NEUTROPHILS # (AUTO) 18.5 X10'3 (1.8-7.7); NEUTROPHILS % (AUTO) 86.8 % (42-75); PLATELET COUNT 82 X10'3 (140-440); RED BLOOD COUNT 3.09 X10'6 (4.20-5.60); RED CELL DISTRIBUTION WIDTH 15.4 % (11.5-14.5); WHITE BLOOD COUNT 21.3 X10'3 (4.5-11.0)
[2017-09-28 09:33] LABS: ALBUMIN 2.5 G/DL (3.4-5.0); ANION GAP 12 (8-16); BLOOD UREA NITROGEN 51 MG/DL (7-18); BUN/CREATININE RATIO 19.6 (6.6-38.0); CHLORIDE 101 MMOL/L (99-107); CREATINE KINASE 1191 U/L (26-192); GLUCOSE 149 MG/DL (70-104); MAGNESIUM 1.9 MG/DL (1.5-2.4); PHOSPHORUS 2.3 MG/DL (2.3-4.5); SODIUM 135 MMOL/L (135-145); TOTAL CARBON DIOXIDE 22.4 MMOL/L (24-32); eGFR 21 ML/MIN
[2017-09-28 09:40] LABS: PLATELET ESTIMATE DECREASED; TOTAL CELLS COUNTED 100; TOXIC GRANULATION 2+
[2017-09-28] MEDS: sodium phosphate inj. 15 MMOL in dextrose 5%-water 150 ML IV PRN (10:58)
[2017-09-28] MEDS: lactulose 20gm/30ml cup PO SCH ×6 (13:00→17:08)
[2017-09-28] MEDS: FENTANYL-0.9 % NACL/PF 100 ML IV PRN (14:01)
[2017-09-28 15:23] LABS: BASOPHILS % (AUTO) 0.1 % (0-1); EOSINOPHILS # (AUTO) 0.5 X10'3 (0-0.9); EOSINOPHILS % (AUTO) 2.2 % (0-6); HEMATOCRIT 26.6 % (35.0-45.0); HEMOGLOBIN 9.1 g/dl (12.0-16.0); LYMPHOCYTES # (AUTO) 2.2 X10'3 (1.1-4.8); LYMPHOCYTES % (AUTO) 9.6 % (21-51); MEAN CORPUSCULAR HEMOGLOBIN 28.3 PG (27.0-31.0); MEAN CORPUSCULAR HGB CONC 34.1 % (33.0-36.5); MEAN CORPUSCULAR VOLUME 83.1 FL (78-98); MEAN PLATELET VOLUME 9.1 FL (7.4-10.4); MONOCYTES % (AUTO) 4.4 % (2-12); NEUTROPHILS # (AUTO) 19.3 X10'3 (1.8-7.7); NEUTROPHILS % (AUTO) 83.7 % (42-75); PLATELET COUNT 94 X10'3 (140-440); RED CELL DISTRIBUTION WIDTH 15.4 % (11.5-14.5); WHITE BLOOD COUNT 23.1 X10'3 (4.5-11.0)
[2017-09-28 15:34] LABS: ALBUMIN 2.7 G/DL (3.4-5.0); ANION GAP 10 (8-16); BLOOD UREA NITROGEN 52 MG/DL (7-18); BUN/CREATININE RATIO 19.3 (6.6-38.0); CHLORIDE 100 MMOL/L (99-107); GLUCOSE 139 MG/DL (70-104); PHOSPHORUS 3.1 MG/DL (2.3-4.5); POTASSIUM 4.2 MMOL/L (3.5-5.1); SODIUM 135 MMOL/L (135-145); TOTAL CARBON DIOXIDE 25.4 MMOL/L (24-32); eGFR 20 ML/MIN
[2017-09-28 20:16] LABS: ABG BASE EXCESS -1.4 mmol/L (-2.0-3.0); ABG HCO3 24.2 mmol/L (22.0-26.0); ABG OXYGEN SATURATION 79.8 % (95-98); ABG PCO2 (T) 43.6 mmHg (32.0-45.0); ABG PO2 (T) 41.9 mmHg (83-108); FCOHb 0.2 % (0.5-1.5); FMetHb 0.1 % (0.3-1.12); FO2Hb 79.6 % (94-100); MINUTE VOLUME 17 L/min; PATIENT TEMPERATURE 36.5; PEEP 5 cm H2O; RESPIRATORY RATE 20 b/min; RESPIRATORY RATE (OBSERVED) 34 b/min; TIDAL VOLUME 400 mL; TOTAL HEMOGLOBIN 10.4 G/dl (12.0-16.0)
[2017-09-28] MEDS ORDERED: citalopram 20mg tablet PO SCH (21:00)
[2017-09-28 21:38] LABS: BASOPHILS % (AUTO) 0.1 % (0-1); EOSINOPHILS # (AUTO) 0.2 X10'3 (0-0.9); EOSINOPHILS % (AUTO) 0.9 % (0-6); HEMATOCRIT 27.4 % (35.0-45.0); HEMOGLOBIN 9.4 g/dl (12.0-16.0); LYMPHOCYTES # (AUTO) 1.8 X10'3 (1.1-4.8); MEAN CORPUSCULAR HEMOGLOBIN 28.3 PG (27.0-31.0); MEAN CORPUSCULAR HGB CONC 34.2 % (33.0-36.5); MEAN CORPUSCULAR VOLUME 82.8 FL (78-98); MEAN PLATELET VOLUME 9.1 FL (7.4-10.4); MONOCYTES # (AUTO) 0.6 X10'3 (0-0.9); MONOCYTES % (AUTO) 3.1 % (2-12); NEUTROPHILS # (AUTO) 17.6 X10'3 (1.8-7.7); NEUTROPHILS % (AUTO) 86.9 % (42-75); PLATELET COUNT 107 X10'3 (140-440); RED BLOOD COUNT 3.31 X10'6 (4.20-5.60); RED CELL DISTRIBUTION WIDTH 15.1 % (11.5-14.5); WHITE BLOOD COUNT 20.3 X10'3 (4.5-11.0)
[2017-09-28 22:04] LABS: ALBUMIN 2.7 G/DL (3.4-5.0); ANION GAP 9 (8-16); BLOOD UREA NITROGEN 55 MG/DL (7-18); BUN/CREATININE RATIO 21.2 (6.6-38.0); CHLORIDE 102 MMOL/L (99-107); GLUCOSE 106 MG/DL (70-104); PHOSPHORUS 2.6 MG/DL (2.3-4.5); POTASSIUM 4.4 MMOL/L (3.5-5.1); SODIUM 137 MMOL/L (135-145); eGFR 21 ML/MIN
[2017-09-29] VITALS (23 sets, daily range): BP systolic 85–148; BP diastolic 44–60
[2017-09-29] MEDS: insulin regular, human 100 UNITS in normal saline 100ml IV soln 99 ML IV SCH ×20 (00:13→23:01)
[2017-09-29] MEDS: metoclopramide 5 mg/ml inj IV SCH ×4 (01:52→20:00)
[2017-09-29] MEDS: mineral oil/petrolatum ophthal oint EACHEYE SCH ×4 (02:24→21:36)
[2017-09-29] MEDS: hydrocortisone sod succ/PF 100mg/2ml inj. IV SCH (02:24)
[2017-09-29] MEDS: ipratropium/albuterol 3ml nebule NEB SCH ×6 (02:57→22:56)
[2017-09-29] MEDS: VANCOMYCIN LEVEL IV SCH (03:00)
[2017-09-29 03:16] LABS: ABG HCO3 24.4 mmol/L (22.0-26.0); ABG OXYGEN SATURATION 98.3 % (95-98); ABG PCO2 (T) 43.7 mmHg (32.0-45.0); ABG PH (T) 7.366 (7.350-7.450); ABG PO2 (T) 121.7 mmHg (83-108); FCOHb 0.3 % (0.5-1.5); FMetHb 0.3 % (0.3-1.12); FO2Hb 97.7 % (94-100); PATIENT TEMPERATURE 37.1; PEEP 5 cm H2O; RESPIRATORY RATE 20 b/min; RESPIRATORY RATE (OBSERVED) 22 b/min; TIDAL VOLUME 400 mL; TOTAL HEMOGLOBIN 10.1 G/dl (12.0-16.0)
[2017-09-29 03:35] LABS: BASOPHILS # (AUTO) 0.1 X10'3 (0-0.2); BASOPHILS % (AUTO) 0.3 % (0-1); EOSINOPHILS # (AUTO) 0.2 X10'3 (0-0.9); EOSINOPHILS % (AUTO) 0.8 % (0-6); HEMATOCRIT 27.6 % (35.0-45.0); HEMOGLOBIN 9.3 g/dl (12.0-16.0); LYMPHOCYTES # (AUTO) 1.5 X10'3 (1.1-4.8); MEAN CORPUSCULAR HGB CONC 33.7 % (33.0-36.5); MEAN CORPUSCULAR VOLUME 83.2 FL (78-98); MEAN PLATELET VOLUME 9.2 FL (7.4-10.4); MONOCYTES % (AUTO) 4.5 % (2-12); NEUTROPHILS # (AUTO) 19.2 X10'3 (1.8-7.7); NEUTROPHILS % (AUTO) 87.4 % (42-75); PLATELET COUNT 103 X10'3 (140-440); RED BLOOD COUNT 3.32 X10'6 (4.20-5.60); RED CELL DISTRIBUTION WIDTH 15.3 % (11.5-14.5); WHITE BLOOD COUNT 21.9 X10'3 (4.5-11.0)
[2017-09-29 03:48] LABS: PROTHROMBIN TIME 10.4 SECONDS (9.0-12.0)
[2017-09-29 04:18] LABS: ALANINE AMINOTRANSFERASE 111 U/L (12-78); ALBUMIN 2.8 G/DL (3.4-5.0); ALBUMIN/GLOBULIN RATIO 0.6 (1.1-1.5); ALKALINE PHOSPHATASE 346 IU/L (46-116); ANION GAP 10 (8-16); ASPARTATE AMINO TRANSFERASE 92 U/L (10-37); BILIRUBIN,TOTAL 1.5 MG/DL (0.1-1.0); BLOOD UREA NITROGEN 58 MG/DL (7-18); BUN/CREATININE RATIO 20.7 (6.6-38.0); CALCIUM 8.8 MG/DL (8.5-10.1); CHLORIDE 100 MMOL/L (99-107); CREATINE KINASE 1096 U/L (26-192); GLUCOSE 124 MG/DL (70-104); PHOSPHORUS 2.5 MG/DL (2.3-4.5); POTASSIUM 4.1 MMOL/L (3.5-5.1); SODIUM 135 MMOL/L (135-145); TOTAL CARBON DIOXIDE 24.6 MMOL/L (24-32); TOTAL PROTEIN 7.3 G/DL (6.4-8.2); VANCOMYCIN,RANDOM 20.3 UG/ML; eGFR 19 ML/MIN
[2017-09-29] MEDS: Duosol 4K/3 Ca (w/calcium) 5,000 ML HE SCH (04:30)
[2017-09-29] MEDS: heparin 10,000 units/1 ML INJ IV PRN (04:46)
[2017-09-29] MEDS: midazolam 100mg in NS 100ml 100 ML IV PRN (05:00)
[2017-09-29 07:27] LABS: LYMPHOCYTES % (MANUAL) 8 % (21-51); METAMYLEOCYTES% (MANUAL) 7 % (0-0); MONOCYTES % (MANUAL) 3 % (2-12); NEUTROPHILS % (MANUAL) 82 % (42-75); PLATELET ESTIMATE DECREASED; TARGET CELLS 1+; TOTAL CELLS COUNTED 100
[2017-09-29 07:28] LABS: TOXIC GRANULATION 1+
[2017-09-29] MEDS ORDERED: hydrocortisone sod succ/PF 100mg/2ml inj. IV SCH ×2 (08:00→20:00)
[2017-09-29] MEDS: K, MAG and/or Phos replacement - Verify level? MC SCH (08:00)
[2017-09-29] MEDS: pantoprazole 40 MG vial IV SCH (08:51)
[2017-09-29] MEDS: linezolid 600mg/300ml PREMIX 300 ML IV SCH ×2 (08:51→21:36)
[2017-09-29] MEDS: LACTOBACILLUS RHAMNOSUS GG 15 billion unit sprinkle caps PO SCH (08:51)
[2017-09-29] MEDS: heparin, porcine 5000 units/ml vial SQ SCH ×2 (09:43→21:53)
[2017-09-29 11:18] LABS: PREALBUMIN 16.6 MG/DL (19-36)
[2017-09-29] MEDS: citalopram 20mg tablet PO SCH (21:36)
[2017-09-29] MEDS: FENTANYL-0.9 % NACL/PF 100 ML IV PRN (21:53)
[2017-09-30] VITALS (24 sets, daily range): BP systolic 107–166; BP diastolic 51–66
[2017-09-30] MEDS: insulin regular, human 100 UNITS in normal saline 100ml IV soln 99 ML IV SCH ×14 (00:01→23:08)
[2017-09-30] MEDS: metoclopramide 5 mg/ml inj IV SCH ×2 (02:00→08:00)
[2017-09-30] MEDS: mineral oil/petrolatum ophthal oint EACHEYE SCH ×4 (02:42→21:04)
[2017-09-30] MEDS: VANCOMYCIN LEVEL IV SCH (03:00)
[2017-09-30] MEDS: ipratropium/albuterol 3ml nebule NEB SCH ×6 (03:33→23:00)
[2017-09-30 03:46] LABS: ABG BASE EXCESS -4.9 mmol/L (-2.0-3.0); ABG HCO3 19.9 mmol/L (22.0-26.0); ABG OXYGEN SATURATION 95.1 % (95-98); ABG PCO2 (T) 36.9 mmHg (32.0-45.0); ABG PH (T) 7.354 (7.350-7.450); ABG PO2 (T) 83.4 mmHg (83-108); FCOHb 0.3 % (0.5-1.5); FO2Hb 94.8 % (94-100); MINUTE VOLUME 14 L/min; PATIENT TEMPERATURE 37.8; PEEP 5 cm H2O; RESPIRATORY RATE 20 b/min; RESPIRATORY RATE (OBSERVED) 27 b/min; TIDAL VOLUME 400 mL; TOTAL HEMOGLOBIN 9.4 G/dl (12.0-16.0)
[2017-09-30 04:58] LABS: BASOPHILS % (AUTO) 0.1 % (0-1); EOSINOPHILS # (AUTO) 0.3 X10'3 (0-0.9); EOSINOPHILS % (AUTO) 1.7 % (0-6); HEMATOCRIT 24.9 % (35.0-45.0); HEMOGLOBIN 8.9 g/dl (12.0-16.0); LYMPHOCYTES # (AUTO) 2.6 X10'3 (1.1-4.8); LYMPHOCYTES % (AUTO) 13.5 % (21-51); MEAN CORPUSCULAR HEMOGLOBIN 29.2 PG (27.0-31.0); MEAN CORPUSCULAR HGB CONC 35.6 % (33.0-36.5); MEAN PLATELET VOLUME 8.8 FL (7.4-10.4); MONOCYTES # (AUTO) 0.9 X10'3 (0-0.9); MONOCYTES % (AUTO) 4.7 % (2-12); NEUTROPHILS # (AUTO) 15.3 X10'3 (1.8-7.7); PLATELET COUNT 143 X10'3 (140-440); RED BLOOD COUNT 3.04 X10'6 (4.20-5.60); RED CELL DISTRIBUTION WIDTH 13.8 % (11.5-14.5); WHITE BLOOD COUNT 19.1 X10'3 (4.5-11.0)
[2017-09-30 05:27] LABS: ALANINE AMINOTRANSFERASE 86 U/L (12-78); ALBUMIN 2.5 G/DL (3.4-5.0); ALBUMIN/GLOBULIN RATIO 0.6 (1.1-1.5); ALKALINE PHOSPHATASE 270 IU/L (46-116); ANION GAP 14 (8-16); ASPARTATE AMINO TRANSFERASE 58 U/L (10-37); BLOOD UREA NITROGEN 107 MG/DL (7-18); BUN/CREATININE RATIO 25.5 (6.6-38.0); CALCIUM 8.4 MG/DL (8.5-10.1); CHLORIDE 100 MMOL/L (99-107); GLUCOSE 131 MG/DL (70-104); MAGNESIUM 2.3 MG/DL (1.5-2.4); PHOSPHORUS 3.2 MG/DL (2.3-4.5); POTASSIUM 4.7 MMOL/L (3.5-5.1); SODIUM 136 MMOL/L (135-145); TOTAL CARBON DIOXIDE 22.3 MMOL/L (24-32); TOTAL PROTEIN 6.8 G/DL (6.4-8.2); VANCOMYCIN,RANDOM 17.5 UG/ML; eGFR 12 ML/MIN
[2017-09-30 05:28] LABS: CREATINE KINASE 1159 U/L (26-192)
[2017-09-30 06:49] LABS: PLATELET ESTIMATE NORMAL; TOTAL CELLS COUNTED 100
[2017-09-30 06:50] LABS: MICROCYTOSIS 1+; TOXIC GRANULATION 1+
[2017-09-30] MEDS: K, MAG and/or Phos replacement - Verify level? MC SCH (08:00)
[2017-09-30] MEDS ORDERED: heparin 1,000unit/ml 10ml vial 10 ML IV ONE (08:37)
[2017-09-30] MEDS ORDERED: heparin 1,000 units/ml 10ml inj IV ONE (08:40)
[2017-09-30] MEDS ORDERED: albumin (human) 25% 100ml IV 100 ML IV PRN (08:40)
[2017-09-30] MEDS: LACTOBACILLUS RHAMNOSUS GG 15 billion unit sprinkle caps PO SCH (08:45)
[2017-09-30] MEDS: pantoprazole 40 MG vial IV SCH (08:45)
[2017-09-30] MEDS: linezolid 600mg/300ml PREMIX 300 ML IV SCH ×2 (08:47→21:04)
[2017-09-30] MEDS: heparin, porcine 5000 units/ml vial SQ SCH ×2 (08:47→21:05)
[2017-09-30] MEDS ORDERED: mannitol 20% IV solution 250ml 62.5 ML IV ONE (09:15)
[2017-09-30] MEDS: midazolam 100mg in NS 100ml 100 ML IV PRN (10:58)
[2017-09-30] MEDS: citalopram 20mg tablet PO SCH (21:05)
[2017-10-01] VITALS (24 sets, daily range): BP systolic 105–163; BP diastolic 53–68
[2017-10-01] MEDS: mineral oil/petrolatum ophthal oint EACHEYE SCH ×4 (02:10→21:57)
[2017-10-01] MEDS: insulin regular, human 100 UNITS in normal saline 100ml IV soln 99 ML IV SCH ×10 (02:13→23:08)
[2017-10-01] MEDS: ipratropium/albuterol 3ml nebule NEB SCH ×2 (03:00→07:18)
[2017-10-01] MEDS: VANCOMYCIN LEVEL IV SCH (03:00)
[2017-10-01 03:06] LABS: ABG BASE EXCESS 0.4 mmol/L (-2.0-3.0); ABG OXYGEN SATURATION 92.4 % (95-98); ABG PCO2 (T) 41.6 mmHg (32.0-45.0); ABG PO2 (T) 70.5 mmHg (83-108); ALLEN'S TEST Positive; FCOHb 0.2 % (0.5-1.5); FMetHb 0.1 % (0.3-1.12); FO2Hb 92.1 % (94-100); MINUTE VOLUME 14 L/min; PATIENT TEMPERATURE 37.9; PEEP 5 cm H2O; RESPIRATORY RATE 20 b/min; RESPIRATORY RATE (OBSERVED) 26 b/min; TIDAL VOLUME 400 mL; TOTAL HEMOGLOBIN 9.2 G/dl (12.0-16.0)
[2017-10-01 03:53] LABS: BASOPHILS # (AUTO) 0.1 X10'3 (0-0.2); BASOPHILS % (AUTO) 0.2 % (0-1); EOSINOPHILS # (AUTO) 0.5 X10'3 (0-0.9); EOSINOPHILS % (AUTO) 2.1 % (0-6); HEMATOCRIT 24.1 % (35.0-45.0); HEMOGLOBIN 8.3 g/dl (12.0-16.0); LYMPHOCYTES # (AUTO) 2.9 X10'3 (1.1-4.8); LYMPHOCYTES % (AUTO) 12.6 % (21-51); MEAN CORPUSCULAR HEMOGLOBIN 28.2 PG (27.0-31.0); MEAN CORPUSCULAR HGB CONC 34.3 % (33.0-36.5); MEAN CORPUSCULAR VOLUME 82.1 FL (78-98); MEAN PLATELET VOLUME 8.5 FL (7.4-10.4); MONOCYTES # (AUTO) 2.4 X10'3 (0-0.9); MONOCYTES % (AUTO) 10.8 % (2-12); NEUTROPHILS # (AUTO) 16.9 X10'3 (1.8-7.7); NEUTROPHILS % (AUTO) 74.3 % (42-75); PLATELET COUNT 174 X10'3 (140-440); RED BLOOD COUNT 2.94 X10'6 (4.20-5.60); RED CELL DISTRIBUTION WIDTH 14.4 % (11.5-14.5); WHITE BLOOD COUNT 22.7 X10'3 (4.5-11.0)
[2017-10-01 04:03] LABS: PROTHROMBIN TIME 10.7 SECONDS (9.0-12.0)
[2017-10-01 04:25] LABS: PLATELET ESTIMATE NORMAL; TOTAL CELLS COUNTED 100; TOXIC GRANULATION 1+
[2017-10-01 04:26] LABS: ALANINE AMINOTRANSFERASE 73 U/L (12-78); ALBUMIN 2.2 G/DL (3.4-5.0); ALBUMIN/GLOBULIN RATIO 0.5 (1.1-1.5); ALKALINE PHOSPHATASE 216 IU/L (46-116); ANION GAP 12 (8-16); ANISOCYTOSIS 1+; ASPARTATE AMINO TRANSFERASE 63 U/L (10-37); BILIRUBIN,TOTAL 0.9 MG/DL (0.1-1.0); BLOOD UREA NITROGEN 73 MG/DL (7-18); BUN/CREATININE RATIO 24.3 (6.6-38.0); CALCIUM 7.6 MG/DL (8.5-10.1); CHLORIDE 100 MMOL/L (99-107); GLUCOSE 170 MG/DL (70-104); PHOSPHORUS 4.7 MG/DL (2.3-4.5); POTASSIUM 4.5 MMOL/L (3.5-5.1); SODIUM 138 MMOL/L (135-145); TOTAL CARBON DIOXIDE 25.7 MMOL/L (24-32); TOTAL PROTEIN 6.9 G/DL (6.4-8.2); VANCOMYCIN,RANDOM 9.2 UG/ML; eGFR 18 ML/MIN
[2017-10-01 04:32] LABS: CREATINE KINASE 1409 U/L (26-192)
[2017-10-01] MEDS: midazolam 100mg in NS 100ml 100 ML IV PRN ×2 (05:11→21:44)
[2017-10-01] MEDS: pantoprazole 40 MG vial IV SCH (07:43)
[2017-10-01] MEDS: LACTOBACILLUS RHAMNOSUS GG 15 billion unit sprinkle caps PO SCH (07:44)
[2017-10-01] MEDS: heparin, porcine 5000 units/ml vial SQ SCH ×2 (07:44→21:57)
[2017-10-01] MEDS: linezolid 600mg/300ml PREMIX 300 ML IV SCH ×2 (07:44→21:46)
[2017-10-01] MEDS: K, MAG and/or Phos replacement - Verify level? MC SCH (08:00)
[2017-10-01] MEDS ORDERED: heparin 1,000unit/ml 10ml vial 10 ML IV ONE (09:42)
[2017-10-01] MEDS ORDERED: albumin (human) 25% 100ml IV 100 ML IV PRN (09:45)
[2017-10-01] MEDS ORDERED: epoetin 20,000 units/ml inj IV ONE (09:45)
[2017-10-01] MEDS ORDERED: heparin 1,000 units/ml 10ml inj IV ONE (09:45)
[2017-10-01 09:48] LABS: C DIFF ANTIGEN NEGATIVE (NEGATIVE); C DIFF SPECIMEN=DIARRHEA? ACCEPTABLE; C DIFFICILE TOXINS A&B NEGATIVE (Neg)
[2017-10-01] MEDS ORDERED: heparin 1,000 units/ml 10ml inj HE ONE ×2 (09:50)
[2017-10-01] MEDS ORDERED: ipratropium/albuterol 3ml nebule NEB PRN (11:35)
[2017-10-01] MEDS: aztreonam inj. 500 MG in normal saline 100ml IV soln 100 ML IV SCH ×2 (13:14→15:55)
[2017-10-01] MEDS ORDERED: VANCOMYCIN LEVEL IV ONE (15:00)
[2017-10-01] MEDS: acetaminophen 325mg tablet PO PRN (15:50)
[2017-10-01] MEDS: HYDROmorphone 1 mg/ml syringe IV PRN (15:50)
[2017-10-01] MEDS ORDERED: citalopram 20mg tablet PO SCH (21:00)
[2017-10-02] VITALS (23 sets, daily range): BP systolic 112–155; BP diastolic 57–74
[2017-10-02] MEDS: aztreonam inj. 500 MG in normal saline 100ml IV soln 100 ML IV SCH ×3 (00:28→15:12)
[2017-10-02] MEDS: insulin regular, human 100 UNITS in normal saline 100ml IV soln 99 ML IV SCH ×14 (00:28→21:26)
[2017-10-02] MEDS: mineral oil/petrolatum ophthal oint EACHEYE SCH ×4 (02:00→20:16)
[2017-10-02] MEDS: VANCOMYCIN LEVEL IV SCH (03:00)
[2017-10-02 03:50] LABS: ABG BASE EXCESS -1.3 mmol/L (-2.0-3.0); ABG HCO3 22.3 mmol/L (22.0-26.0); ABG PCO2 (T) 33.3 mmHg (32.0-45.0); ABG PH (T) 7.445 (7.350-7.450); ABG PO2 (T) 113.5 mmHg (83-108); FCOHb 0.3 % (0.5-1.5); FMetHb 0.4 % (0.3-1.12); FO2Hb 97.3 % (94-100); MINUTE VOLUME 14 L/min; PATIENT TEMPERATURE 37.1; PEEP 5 cm H2O; RESPIRATORY RATE 20 b/min; RESPIRATORY RATE (OBSERVED) 28 b/min; TIDAL VOLUME 400 mL; TOTAL HEMOGLOBIN 9.1 G/dl (12.0-16.0)
[2017-10-02 04:22] LABS: BASOPHILS # (AUTO) 0.1 X10'3 (0-0.2); BASOPHILS % (AUTO) 0.3 % (0-1); EOSINOPHILS # (AUTO) 0.4 X10'3 (0-0.9); EOSINOPHILS % (AUTO) 1.6 % (0-6); HEMATOCRIT 25.1 % (35.0-45.0); HEMOGLOBIN 8.5 g/dl (12.0-16.0); LYMPHOCYTES # (AUTO) 2.4 X10'3 (1.1-4.8); LYMPHOCYTES % (AUTO) 9.9 % (21-51); MEAN CORPUSCULAR HEMOGLOBIN 28.1 PG (27.0-31.0); MEAN CORPUSCULAR HGB CONC 33.9 % (33.0-36.5); MEAN CORPUSCULAR VOLUME 82.7 FL (78-98); MEAN PLATELET VOLUME 8.3 FL (7.4-10.4); MONOCYTES # (AUTO) 3.2 X10'3 (0-0.9); MONOCYTES % (AUTO) 13.4 % (2-12); NEUTROPHILS # (AUTO) 17.7 X10'3 (1.8-7.7); NEUTROPHILS % (AUTO) 74.8 % (42-75); PLATELET COUNT 257 X10'3 (140-440); RED BLOOD COUNT 3.04 X10'6 (4.20-5.60); RED CELL DISTRIBUTION WIDTH 14.4 % (11.5-14.5); WHITE BLOOD COUNT 23.7 X10'3 (4.5-11.0)
[2017-10-02] MEDS: HYDROmorphone 1 mg/ml syringe IV PRN (04:32)
[2017-10-02 04:41] LABS: ALANINE AMINOTRANSFERASE 63 U/L (12-78); ALBUMIN 2.2 G/DL (3.4-5.0); ALBUMIN/GLOBULIN RATIO 0.4 (1.1-1.5); ALKALINE PHOSPHATASE 186 IU/L (46-116); ANION GAP 13 (8-16); ASPARTATE AMINO TRANSFERASE 48 U/L (10-37); BILIRUBIN,TOTAL 0.7 MG/DL (0.1-1.0); BLOOD UREA NITROGEN 111 MG/DL (7-18); BUN/CREATININE RATIO 33.6 (6.6-38.0); CHLORIDE 104 MMOL/L (99-107); GLUCOSE 133 MG/DL (70-104); MAGNESIUM 2.2 MG/DL (1.5-2.4); PHOSPHORUS 5.6 MG/DL (2.3-4.5); POTASSIUM 4.7 MMOL/L (3.5-5.1); SODIUM 141 MMOL/L (135-145); TOTAL CARBON DIOXIDE 23.6 MMOL/L (24-32); TOTAL PROTEIN 7.7 G/DL (6.4-8.2); VANCOMYCIN,RANDOM 26.5 UG/ML; eGFR 16 ML/MIN
[2017-10-02 05:18] LABS: ANISOCYTOSIS 1+; PLATELET ESTIMATE NORMAL; TOTAL CELLS COUNTED 100; TOXIC GRANULATION 1+
[2017-10-02 05:19] LABS: TARGET CELLS FEW
[2017-10-02] MEDS: K, MAG and/or Phos replacement - Verify level? MC SCH (06:55)
[2017-10-02] MEDS: LACTOBACILLUS RHAMNOSUS GG 15 billion unit sprinkle caps PO SCH (07:21)
[2017-10-02] MEDS: heparin, porcine 5000 units/ml vial SQ SCH ×2 (07:22→20:16)
[2017-10-02] MEDS: pantoprazole 40 MG vial IV SCH (07:22)
[2017-10-02] MEDS ORDERED: heparin 1,000 units/ml 10ml inj HE ONE ×2 (09:20)
[2017-10-02 11:24] LABS: HBSAG SCREEN Negative (Negative)
[2017-10-02] MEDS: linezolid 600mg/300ml PREMIX 300 ML IV SCH ×2 (12:07→20:16)
[2017-10-02] MEDS: diatr meglu/diatrizoate 30ml oral sol.-(3 dose) bottle PO SCH ×3 (12:07→19:10)
[2017-10-02] MEDS: acetaminophen 325mg tablet PO PRN ×2 (13:21→20:15)
[2017-10-03] VITALS (24 sets, daily range): BP systolic 83–147; BP diastolic 54–86
[2017-10-03] MEDS: aztreonam inj. 500 MG in normal saline 100ml IV soln 100 ML IV SCH (00:49)
[2017-10-03] MEDS: insulin regular, human 100 UNITS in normal saline 100ml IV soln 99 ML IV SCH ×8 (00:59→20:05)
[2017-10-03 02:46] LABS: BASOPHILS % (AUTO) 0.2 % (0-1); EOSINOPHILS # (AUTO) 0.3 X10'3 (0-0.9); EOSINOPHILS % (AUTO) 1.4 % (0-6); HEMATOCRIT 24.4 % (35.0-45.0); HEMOGLOBIN 8.3 g/dl (12.0-16.0); LYMPHOCYTES # (AUTO) 3.1 X10'3 (1.1-4.8); LYMPHOCYTES % (AUTO) 16.3 % (21-51); MEAN CORPUSCULAR HEMOGLOBIN 28.2 PG (27.0-31.0); MEAN CORPUSCULAR HGB CONC 34.1 % (33.0-36.5); MEAN CORPUSCULAR VOLUME 82.6 FL (78-98); MEAN PLATELET VOLUME 8.5 FL (7.4-10.4); MONOCYTES # (AUTO) 2.9 X10'3 (0-0.9); MONOCYTES % (AUTO) 15.4 % (2-12); NEUTROPHILS # (AUTO) 12.8 X10'3 (1.8-7.7); NEUTROPHILS % (AUTO) 66.7 % (42-75); PLATELET COUNT 288 X10'3 (140-440); RED BLOOD COUNT 2.95 X10'6 (4.20-5.60); RED CELL DISTRIBUTION WIDTH 14.4 % (11.5-14.5); WHITE BLOOD COUNT 19.1 X10'3 (4.5-11.0)
[2017-10-03] MEDS: mineral oil/petrolatum ophthal oint EACHEYE SCH ×4 (02:51→20:34)
[2017-10-03] MEDS: VANCOMYCIN LEVEL IV SCH (02:51)
[2017-10-03 03:05] LABS: ALANINE AMINOTRANSFERASE 55 U/L (12-78); ALBUMIN 2.2 G/DL (3.4-5.0); ALBUMIN/GLOBULIN RATIO 0.4 (1.1-1.5); ALKALINE PHOSPHATASE 132 IU/L (46-116); ANION GAP 13 (8-16); ASPARTATE AMINO TRANSFERASE 41 U/L (10-37); BILIRUBIN,TOTAL 0.6 MG/DL (0.1-1.0); BLOOD UREA NITROGEN 77 MG/DL (7-18); CALCIUM 7.6 MG/DL (8.5-10.1); CHLORIDE 100 MMOL/L (99-107); GLUCOSE 163 MG/DL (70-104); MAGNESIUM 1.9 MG/DL (1.5-2.4); PHOSPHORUS 5.5 MG/DL (2.3-4.5); POTASSIUM 3.3 MMOL/L (3.5-5.1); PREALBUMIN 17.2 MG/DL (19-36); SODIUM 140 MMOL/L (135-145); TOTAL CARBON DIOXIDE 27.4 MMOL/L (24-32); TOTAL PROTEIN 7.8 G/DL (6.4-8.2); VANCOMYCIN,RANDOM 8.3 UG/ML; eGFR 26 ML/MIN
[2017-10-03 03:15] LABS: ABG BASE EXCESS 0.3 mmol/L (-2.0-3.0); ABG HCO3 22.6 mmol/L (22.0-26.0); ABG PCO2 (T) 28.2 mmHg (32.0-45.0); ABG PH (T) 7.522 (7.350-7.450); ABG PO2 (T) 117.3 mmHg (83-108); ALLEN'S TEST Positive; FCOHb 0.3 % (0.5-1.5); FMetHb 0.1 % (0.3-1.12); FO2Hb 97.6 % (94-100); MINUTE VOLUME 14 L/min; PATIENT TEMPERATURE 37.2; PEEP 5 cm H2O; RESPIRATORY RATE 20 b/min; RESPIRATORY RATE (OBSERVED) 25 b/min; TIDAL VOLUME 400 mL; TOTAL HEMOGLOBIN 8.5 G/dl (12.0-16.0)
[2017-10-03] MEDS ORDERED: potassium Cl 40MEQ/250ML bag 250 ML IV ONE (03:27)
[2017-10-03 03:30] LABS: PLATELET ESTIMATE NORMAL; POLYCHROMASIA FEW; TARGET CELLS FEW; TOTAL CELLS COUNTED 100; TOXIC GRANULATION 1+
[2017-10-03] MEDS: potassium Cl 40MEQ/250ML bag 250 ML IV SCH (03:48)
[2017-10-03] MEDS: K, MAG and/or Phos replacement - Verify level? MC SCH (08:00)
[2017-10-03] MEDS: CEFTAROLINE FOSAMIL IV SCH ×2 (09:06→20:35)
[2017-10-03] MEDS: NORMAL SALINE IV SCH ×2 (09:06→20:35)
[2017-10-03] MEDS: pantoprazole 40 MG vial IV SCH (09:07)
[2017-10-03] MEDS: LACTOBACILLUS RHAMNOSUS GG 15 billion unit sprinkle caps PO SCH (09:07)
[2017-10-03] MEDS: heparin, porcine 5000 units/ml vial SQ SCH ×2 (09:08→20:35)
[2017-10-03] MEDS: CITALOpram 10mg tablet PO SCH (09:46)
[2017-10-03] MEDS ORDERED: dexmedetomidin/NS 400mcg/100ml 100 ML IV SCH (11:05)
[2017-10-03 18:48] LABS: CREATINE KINASE 836 U/L (26-192)
[2017-10-03] MEDS: chlorhexidine gluconate 15ml Cup****oral rinse MM SCH (20:32)
[2017-10-03] MEDS: acetaminophen 325mg tablet PO PRN (20:33)
[2017-10-03] MEDS: HYDROmorphone 1 mg/ml syringe IV PRN (23:48)
[2017-10-04] VITALS (32 sets, daily range): BP systolic 110–147; BP diastolic 54–74
[2017-10-04] MEDS: mineral oil/petrolatum ophthal oint EACHEYE SCH ×3 (02:04→14:00)
[2017-10-04] MEDS: insulin regular, human 100 UNITS in normal saline 100ml IV soln 99 ML IV SCH ×8 (02:09→09:24)
[2017-10-04 02:39] LABS: BASOPHILS % (AUTO) 0.3 % (0-1); EOSINOPHILS # (AUTO) 0.3 X10'3 (0-0.9); EOSINOPHILS % (AUTO) 1.8 % (0-6); HEMOGLOBIN 7.2 g/dl (12.0-16.0); LYMPHOCYTES # (AUTO) 1.6 X10'3 (1.1-4.8); LYMPHOCYTES % (AUTO) 10.2 % (21-51); MEAN CORPUSCULAR HEMOGLOBIN 28.3 PG (27.0-31.0); MEAN CORPUSCULAR HGB CONC 33.9 % (33.0-36.5); MEAN CORPUSCULAR VOLUME 83.6 FL (78-98); MEAN PLATELET VOLUME 8.6 FL (7.4-10.4); MONOCYTES # (AUTO) 1.5 X10'3 (0-0.9); MONOCYTES % (AUTO) 9.2 % (2-12); NEUTROPHILS # (AUTO) 12.6 X10'3 (1.8-7.7); NEUTROPHILS % (AUTO) 78.5 % (42-75); PLATELET COUNT 311 X10'3 (140-440); RED BLOOD COUNT 2.55 X10'6 (4.20-5.60); RED CELL DISTRIBUTION WIDTH 14.8 % (11.5-14.5); WHITE BLOOD COUNT 16.1 X10'3 (4.5-11.0)
[2017-10-04 02:56] LABS: ABG HCO3 20.7 mmol/L (22.0-26.0); ABG OXYGEN SATURATION 94.4 % (95-98); ABG PCO2 (T) 32.2 mmHg (32.0-45.0); ABG PO2 (T) 83.1 mmHg (83-108); ALLEN'S TEST Positive; FCOHb 1.1 % (0.5-1.5); FMetHb 0.2 % (0.3-1.12); FO2Hb 93.2 % (94-100); MINUTE VOLUME 9 L/min; PEEP 5 cm H2O; RESPIRATORY RATE 18 b/min; RESPIRATORY RATE (OBSERVED) 24 b/min; TIDAL VOLUME 400 mL; TOTAL HEMOGLOBIN 6.8 G/dl (12.0-16.0)
[2017-10-04 03:02] LABS: ALANINE AMINOTRANSFERASE 51 U/L (12-78); ALBUMIN 2.1 G/DL (3.4-5.0); ALBUMIN/GLOBULIN RATIO 0.4 (1.1-1.5); ALKALINE PHOSPHATASE 106 IU/L (46-116); ANION GAP 12 (8-16); ASPARTATE AMINO TRANSFERASE 37 U/L (10-37); BILIRUBIN,TOTAL 0.6 MG/DL (0.1-1.0); BLOOD UREA NITROGEN 84 MG/DL (7-18); BUN/CREATININE RATIO 46.7 (6.6-38.0); CALCIUM 8.1 MG/DL (8.5-10.1); CHLORIDE 110 MMOL/L (99-107); GLUCOSE 158 MG/DL (70-104); MAGNESIUM 1.6 MG/DL (1.5-2.4); PHOSPHORUS 5.6 MG/DL (2.3-4.5); POTASSIUM 3.4 MMOL/L (3.5-5.1); SODIUM 147 MMOL/L (135-145); TOTAL CARBON DIOXIDE 24.6 MMOL/L (24-32); TOTAL PROTEIN 7.6 G/DL (6.4-8.2); VANCOMYCIN,RANDOM 4.2 UG/ML; eGFR 32 ML/MIN
[2017-10-04 03:08] LABS: HEMATOCRIT 21.3 % (35.0-45.0)
[2017-10-04] MEDS ORDERED: sodium chloride 0.45% 1,000 ML IV SCH (03:21)
[2017-10-04] MEDS: acetaminophen 325mg tablet PO PRN ×2 (03:29→23:17)
[2017-10-04] MEDS ORDERED: potassium Cl 40MEQ/250ML bag 250 ML IV ONE (04:33)
[2017-10-04] MEDS: K, MAG and/or Phos replacement - Verify level? MC SCH (08:00)
[2017-10-04] MEDS: chlorhexidine gluconate 15ml Cup****oral rinse MM SCH ×2 (08:14→19:25)
[2017-10-04] MEDS: CITALOpram 10mg tablet PO SCH (08:14)
[2017-10-04] MEDS: pantoprazole 40 MG vial IV SCH (08:14)
[2017-10-04] MEDS: NORMAL SALINE IV SCH ×2 (08:14→19:25)
[2017-10-04] MEDS: CEFTAROLINE FOSAMIL IV SCH ×2 (08:14→19:25)
[2017-10-04] MEDS: LACTOBACILLUS RHAMNOSUS GG 15 billion unit sprinkle caps PO SCH (08:14)
[2017-10-04] MEDS: heparin, porcine 5000 units/ml vial SQ SCH ×2 (08:23→19:26)
[2017-10-04] MEDS ORDERED: HYDROcodone/acetaminophen 10/325mg tab PO PRN (08:55)
[2017-10-04] MEDS: HYDROcodone/acetaminophen 10/325mg tab PO PRN ×2 (09:27→19:27)
[2017-10-04] MEDS: insulin glargine (Lantus) pen - multi-dose SQ SCH (21:00)
[2017-10-05] VITALS (24 sets, daily range): BP systolic 104–144; BP diastolic 53–84
[2017-10-05 03:08] LABS: BASOPHILS # (AUTO) 0.1 X10'3 (0-0.2); BASOPHILS % (AUTO) 0.9 % (0-1); EOSINOPHILS # (AUTO) 0.2 X10'3 (0-0.9); EOSINOPHILS % (AUTO) 1.9 % (0-6); HEMATOCRIT 25.1 % (35.0-45.0); HEMOGLOBIN 8.5 g/dl (12.0-16.0); LYMPHOCYTES # (AUTO) 1.9 X10'3 (1.1-4.8); LYMPHOCYTES % (AUTO) 16.6 % (21-51); MEAN CORPUSCULAR HEMOGLOBIN 28.5 PG (27.0-31.0); MEAN PLATELET VOLUME 8.3 FL (7.4-10.4); MONOCYTES # (AUTO) 0.7 X10'3 (0-0.9); MONOCYTES % (AUTO) 5.8 % (2-12); NEUTROPHILS # (AUTO) 8.5 X10'3 (1.8-7.7); NEUTROPHILS % (AUTO) 74.8 % (42-75); PLATELET COUNT 360 X10'3 (140-440); RED BLOOD COUNT 2.99 X10'6 (4.20-5.60); RED CELL DISTRIBUTION WIDTH 14.9 % (11.5-14.5); WHITE BLOOD COUNT 11.3 X10'3 (4.5-11.0)
[2017-10-05 04:33] LABS: ALANINE AMINOTRANSFERASE 51 U/L (12-78); ALBUMIN 2.1 G/DL (3.4-5.0); ALBUMIN/GLOBULIN RATIO 0.4 (1.1-1.5); ALKALINE PHOSPHATASE 90 IU/L (46-116); ANION GAP 14 (8-16); ASPARTATE AMINO TRANSFERASE 30 U/L (10-37); BILIRUBIN,TOTAL 0.6 MG/DL (0.1-1.0); BLOOD UREA NITROGEN 69 MG/DL (7-18); BUN/CREATININE RATIO 49.3 (6.6-38.0); CALCIUM 8.2 MG/DL (8.5-10.1); CHLORIDE 116 MMOL/L (99-107); CREATINE KINASE 215 U/L (26-192); GLUCOSE 174 MG/DL (70-104); MAGNESIUM 1.8 MG/DL (1.5-2.4); PHOSPHORUS 3.9 MG/DL (2.3-4.5); POTASSIUM 3.9 MMOL/L (3.5-5.1); SODIUM 153 MMOL/L (135-145); TOTAL CARBON DIOXIDE 23.2 MMOL/L (24-32); TOTAL PROTEIN 7.6 G/DL (6.4-8.2); eGFR 43 ML/MIN
[2017-10-05] MEDS ORDERED: sodium chloride 0.45% 1,000 ML IV SCH (05:26)
[2017-10-05] MEDS: K, MAG and/or Phos replacement - Verify level? MC SCH (07:48)
[2017-10-05] MEDS: CEFTAROLINE FOSAMIL IV SCH ×2 (08:08→21:01)
[2017-10-05] MEDS: pantoprazole 40 MG vial IV SCH (08:08)
[2017-10-05] MEDS: NORMAL SALINE IV SCH ×2 (08:08→21:01)
[2017-10-05] MEDS: chlorhexidine gluconate 15ml Cup****oral rinse MM SCH (08:08)
[2017-10-05] MEDS: LACTOBACILLUS RHAMNOSUS GG 15 billion unit sprinkle caps PO SCH (08:09)
[2017-10-05] MEDS: CITALOpram 10mg tablet PO SCH (08:09)
[2017-10-05] MEDS: heparin, porcine 5000 units/ml vial SQ SCH ×2 (08:09→19:50)
[2017-10-05] MEDS: insulin Lispro (HumaLOG) vial - multi-dose SQ SCH ×2 (09:59→13:19)
[2017-10-05] MEDS: HYDROcodone/acetaminophen 10/325mg tab PO PRN (10:17)
[2017-10-05] MEDS ORDERED: morphine 2 MG/ML inj. syringe IV PRN (16:50)
[2017-10-05] MEDS: insulin glargine (Lantus) pen - multi-dose SQ SCH (21:09)
[2017-10-06] VITALS (17 sets, daily range): BP systolic 109–148; BP diastolic 57–79
[2017-10-06 04:05] LABS: BASOPHILS % (AUTO) 0.3 % (0-1); EOSINOPHILS # (AUTO) 0.3 X10'3 (0-0.9); EOSINOPHILS % (AUTO) 2.8 % (0-6); HEMATOCRIT 23.8 % (35.0-45.0); HEMOGLOBIN 8.2 g/dl (12.0-16.0); LYMPHOCYTES % (AUTO) 19.9 % (21-51); MEAN CORPUSCULAR HEMOGLOBIN 28.8 PG (27.0-31.0); MEAN CORPUSCULAR HGB CONC 34.6 % (33.0-36.5); MEAN CORPUSCULAR VOLUME 83.4 FL (78-98); MEAN PLATELET VOLUME 7.6 FL (7.4-10.4); MONOCYTES # (AUTO) 0.5 X10'3 (0-0.9); MONOCYTES % (AUTO) 4.9 % (2-12); NEUTROPHILS # (AUTO) 7.1 X10'3 (1.8-7.7); NEUTROPHILS % (AUTO) 72.1 % (42-75); PLATELET COUNT 446 X10'3 (140-440); RED BLOOD COUNT 2.85 X10'6 (4.20-5.60); RED CELL DISTRIBUTION WIDTH 15.2 % (11.5-14.5); WHITE BLOOD COUNT 9.9 X10'3 (4.5-11.0)
[2017-10-06 04:37] LABS: ALANINE AMINOTRANSFERASE 56 U/L (12-78); ALBUMIN 2.1 G/DL (3.4-5.0); ALBUMIN/GLOBULIN RATIO 0.4 (1.1-1.5); ALKALINE PHOSPHATASE 79 IU/L (46-116); ANION GAP 10 (8-16); ASPARTATE AMINO TRANSFERASE 30 U/L (10-37); BILIRUBIN,TOTAL 0.6 MG/DL (0.1-1.0); BLOOD UREA NITROGEN 50 MG/DL (7-18); BUN/CREATININE RATIO 41.7 (6.6-38.0); CALCIUM 7.9 MG/DL (8.5-10.1); CHLORIDE 115 MMOL/L (99-107); GLUCOSE 131 MG/DL (70-104); MAGNESIUM 1.6 MG/DL (1.5-2.4); PHOSPHORUS 3.5 MG/DL (2.3-4.5); POTASSIUM 3.7 MMOL/L (3.5-5.1); PREALBUMIN 19.3 MG/DL (19-36); SODIUM 148 MMOL/L (135-145); TOTAL CARBON DIOXIDE 23.5 MMOL/L (24-32); TOTAL PROTEIN 7.2 G/DL (6.4-8.2); eGFR 51 ML/MIN
[2017-10-06] MEDS: K, MAG and/or Phos replacement - Verify level? MC SCH (07:45)
[2017-10-06] MEDS: CITALOpram 10mg tablet PO SCH (08:07)
[2017-10-06] MEDS: LACTOBACILLUS RHAMNOSUS GG 15 billion unit sprinkle caps PO SCH (08:07)
[2017-10-06] MEDS: heparin, porcine 5000 units/ml vial SQ SCH ×2 (08:08→21:35)
[2017-10-06] MEDS: NORMAL SALINE IV SCH (08:08)
[2017-10-06] MEDS: CEFTAROLINE FOSAMIL IV SCH (08:08)
[2017-10-06] MEDS: HYDROcodone/acetaminophen 10/325mg tab PO PRN (09:09)
[2017-10-06] MEDS ORDERED: POTASSIUM 40MEQ/500ML NS ***PERIPHERAL LINE REPLACE IV PRN (14:30)
[2017-10-06] MEDS ORDERED: NORMAL SALINE IV SCH (20:00)
[2017-10-06] MEDS ORDERED: CEFTAROLINE FOSAMIL IV SCH (20:00)
[2017-10-06] MEDS: insulin glargine (Lantus) pen - multi-dose SQ SCH (21:00)
[2017-10-07] MEDS: acetaminophen 325mg tablet PO PRN (01:18)
[2017-10-07 03:00] VITALS: BP 136/69
[2017-10-07 05:44] LABS: BASOPHILS # (AUTO) 0.1 X10'3 (0-0.2); BASOPHILS % (AUTO) 0.6 % (0-1); EOSINOPHILS # (AUTO) 0.2 X10'3 (0-0.9); EOSINOPHILS % (AUTO) 2.6 % (0-6); HEMOGLOBIN 8.3 g/dl (12.0-16.0); LYMPHOCYTES # (AUTO) 1.9 X10'3 (1.1-4.8); LYMPHOCYTES % (AUTO) 21.6 % (21-51); MEAN CORPUSCULAR HEMOGLOBIN 28.8 PG (27.0-31.0); MEAN CORPUSCULAR HGB CONC 34.3 % (33.0-36.5); MEAN PLATELET VOLUME 7.5 FL (7.4-10.4); MONOCYTES # (AUTO) 0.4 X10'3 (0-0.9); MONOCYTES % (AUTO) 4.4 % (2-12); NEUTROPHILS # (AUTO) 6.1 X10'3 (1.8-7.7); NEUTROPHILS % (AUTO) 70.8 % (42-75); PLATELET COUNT 531 X10'3 (140-440); RED BLOOD COUNT 2.86 X10'6 (4.20-5.60); RED CELL DISTRIBUTION WIDTH 14.9 % (11.5-14.5); WHITE BLOOD COUNT 8.7 X10'3 (4.5-11.0)
[2017-10-07 06:00] VITALS: BP 126/70
[2017-10-07 06:17] LABS: ALANINE AMINOTRANSFERASE 55 U/L (12-78); ALBUMIN 2.2 G/DL (3.4-5.0); ALBUMIN/GLOBULIN RATIO 0.4 (1.1-1.5); ALKALINE PHOSPHATASE 78 IU/L (46-116); ANION GAP 11 (8-16); ASPARTATE AMINO TRANSFERASE 25 U/L (10-37); BILIRUBIN,TOTAL 0.5 MG/DL (0.1-1.0); BLOOD UREA NITROGEN 37 MG/DL (7-18); BUN/CREATININE RATIO 33.6 (6.6-38.0); CALCIUM 8.2 MG/DL (8.5-10.1); CHLORIDE 115 MMOL/L (99-107); GLUCOSE 120 MG/DL (70-104); MAGNESIUM 1.6 MG/DL (1.5-2.4); PHOSPHORUS 4.2 MG/DL (2.3-4.5); POTASSIUM 3.8 MMOL/L (3.5-5.1); SODIUM 147 MMOL/L (135-145); TOTAL PROTEIN 7.4 G/DL (6.4-8.2); eGFR 57 ML/MIN
[2017-10-07] MEDS: K, MAG and/or Phos replacement - Verify level? MC SCH (08:00)
[2017-10-07] MEDS ORDERED: vancomycin/NS 1 GM ADD-VANTAGE 250 ML IV SCH (08:05)
[2017-10-07] MEDS ORDERED: vancomycin/NS 1 GM ADD-VANTAGE 250 ML IV ONE (08:20)
[2017-10-07] MEDS: LACTOBACILLUS RHAMNOSUS GG 15 billion unit sprinkle caps PO SCH (08:30)
[2017-10-07] MEDS: heparin, porcine 5000 units/ml vial SQ SCH ×2 (08:32→20:04)
[2017-10-07] MEDS: CITALOpram 10mg tablet PO SCH (08:48)
[2017-10-07] MEDS: insulin Lispro (HumaLOG) vial - multi-dose SQ SCH ×2 (08:59→14:11)
[2017-10-07 11:00] VITALS: BP 131/71
[2017-10-07 15:00] VITALS: BP 126/69
[2017-10-07 19:00] VITALS: BP 155/76
[2017-10-07] MEDS: vancomycin inj 1,250 MG in normal saline 250ml IV soln 250 ML IV SCH (20:04)
[2017-10-07] MEDS: insulin glargine (Lantus) pen - multi-dose SQ SCH (21:36)
[2017-10-07 23:00] VITALS: BP 133/64
[2017-10-08 03:00] VITALS: BP 132/72
[2017-10-08 04:08] LABS: BASOPHILS # (AUTO) 0.1 X10'3 (0-0.2); BASOPHILS % (AUTO) 1.1 % (0-1); EOSINOPHILS # (AUTO) 0.2 X10'3 (0-0.9); EOSINOPHILS % (AUTO) 2.4 % (0-6); HEMATOCRIT 24.3 % (35.0-45.0); HEMOGLOBIN 8.3 g/dl (12.0-16.0); LYMPHOCYTES # (AUTO) 1.7 X10'3 (1.1-4.8); LYMPHOCYTES % (AUTO) 21.3 % (21-51); MEAN CORPUSCULAR HGB CONC 34.1 % (33.0-36.5); MEAN CORPUSCULAR VOLUME 84.8 FL (78-98); MEAN PLATELET VOLUME 6.8 FL (7.4-10.4); MONOCYTES # (AUTO) 0.4 X10'3 (0-0.9); MONOCYTES % (AUTO) 5.1 % (2-12); NEUTROPHILS # (AUTO) 5.7 X10'3 (1.8-7.7); NEUTROPHILS % (AUTO) 70.1 % (42-75); PLATELET COUNT 578 X10'3 (140-440); RED BLOOD COUNT 2.86 X10'6 (4.20-5.60); RED CELL DISTRIBUTION WIDTH 15.1 % (11.5-14.5); WHITE BLOOD COUNT 8.1 X10'3 (4.5-11.0)
[2017-10-08 04:23] LABS: ALANINE AMINOTRANSFERASE 52 U/L (12-78); ALBUMIN 2.3 G/DL (3.4-5.0); ALBUMIN/GLOBULIN RATIO 0.4 (1.1-1.5); ALKALINE PHOSPHATASE 75 IU/L (46-116); ANION GAP 12 (8-16); ASPARTATE AMINO TRANSFERASE 23 U/L (10-37); BILIRUBIN,TOTAL 0.5 MG/DL (0.1-1.0); BLOOD UREA NITROGEN 29 MG/DL (7-18); CALCIUM 8.5 MG/DL (8.5-10.1); CHLORIDE 116 MMOL/L (99-107); GLUCOSE 119 MG/DL (70-104); MAGNESIUM 1.7 MG/DL (1.5-2.4); PHOSPHORUS 4.7 MG/DL (2.3-4.5); POTASSIUM 3.8 MMOL/L (3.5-5.1); SODIUM 148 MMOL/L (135-145); TOTAL PROTEIN 7.5 G/DL (6.4-8.2); VANCOMYCIN,RANDOM 21.2 UG/ML; eGFR 63 ML/MIN
[2017-10-08 06:00] VITALS: BP 122/65
[2017-10-08] MEDS: K, MAG and/or Phos replacement - Verify level? MC SCH (08:00)
[2017-10-08] MEDS: CITALOpram 10mg tablet PO SCH (08:04)
[2017-10-08] MEDS: LACTOBACILLUS RHAMNOSUS GG 15 billion unit sprinkle caps PO SCH (08:04)
[2017-10-08] MEDS: vancomycin inj 1,250 MG in normal saline 250ml IV soln 250 ML IV SCH ×2 (08:05→19:55)
[2017-10-08] MEDS: heparin, porcine 5000 units/ml vial SQ SCH ×2 (08:06→19:55)
[2017-10-08] MEDS: acetaminophen 325mg tablet PO PRN ×2 (08:29→19:55)
[2017-10-08 11:00] VITALS: BP 136/61
[2017-10-08 15:00] VITALS: BP 136/65
[2017-10-08 19:00] VITALS: BP 151/70
[2017-10-08] MEDS: insulin Lispro (HumaLOG) vial - multi-dose SQ SCH (19:50)
[2017-10-08] MEDS: insulin glargine (Lantus) pen - multi-dose SQ SCH (22:14)
[2017-10-08 23:00] VITALS: BP 136/65
[2017-10-09 02:00] VITALS: BP 127/69
[2017-10-09 06:00] VITALS: BP 140/71
[2017-10-09 07:25] LABS: BASOPHILS # (AUTO) 0.1 X10'3 (0-0.2); BASOPHILS % (AUTO) 0.8 % (0-1); EOSINOPHILS # (AUTO) 0.3 X10'3 (0-0.9); EOSINOPHILS % (AUTO) 3.4 % (0-6); HEMATOCRIT 24.1 % (35.0-45.0); HEMOGLOBIN 8.3 g/dl (12.0-16.0); LYMPHOCYTES # (AUTO) 1.9 X10'3 (1.1-4.8); LYMPHOCYTES % (AUTO) 24.8 % (21-51); MEAN CORPUSCULAR HEMOGLOBIN 29.1 PG (27.0-31.0); MEAN CORPUSCULAR HGB CONC 34.6 % (33.0-36.5); MONOCYTES # (AUTO) 0.5 X10'3 (0-0.9); MONOCYTES % (AUTO) 7.2 % (2-12); NEUTROPHILS # (AUTO) 4.9 X10'3 (1.8-7.7); NEUTROPHILS % (AUTO) 63.8 % (42-75); PLATELET COUNT 512 X10'3 (140-440); RED BLOOD COUNT 2.87 X10'6 (4.20-5.60); RED CELL DISTRIBUTION WIDTH 14.8 % (11.5-14.5); WHITE BLOOD COUNT 7.7 X10'3 (4.5-11.0)
[2017-10-09] MEDS ORDERED: VANCOMYCIN LEVEL IV NR (07:30)
[2017-10-09 07:46] LABS: ALANINE AMINOTRANSFERASE 51 U/L (12-78); ALBUMIN 2.3 G/DL (3.4-5.0); ALBUMIN/GLOBULIN RATIO 0.4 (1.1-1.5); ALKALINE PHOSPHATASE 75 IU/L (46-116); ANION GAP 12 (8-16); ASPARTATE AMINO TRANSFERASE 24 U/L (10-37); BILIRUBIN,TOTAL 0.4 MG/DL (0.1-1.0); BLOOD UREA NITROGEN 23 MG/DL (7-18); CALCIUM 8.3 MG/DL (8.5-10.1); CHLORIDE 114 MMOL/L (99-107); GLUCOSE 104 MG/DL (70-104); MAGNESIUM 1.5 MG/DL (1.5-2.4); PHOSPHORUS 4.9 MG/DL (2.3-4.5); POTASSIUM 3.6 MMOL/L (3.5-5.1); SODIUM 146 MMOL/L (135-145); TOTAL CARBON DIOXIDE 20.3 MMOL/L (24-32); TOTAL PROTEIN 7.5 G/DL (6.4-8.2); VANCOMYCIN,RANDOM 24.4 UG/ML; eGFR 63 ML/MIN
[2017-10-09] MEDS: LACTOBACILLUS RHAMNOSUS GG 15 billion unit sprinkle caps PO SCH (08:00)
[2017-10-09] MEDS: K, MAG and/or Phos replacement - Verify level? MC SCH (08:00)
[2017-10-09] MEDS: CITALOpram 10mg tablet PO SCH (08:00)
[2017-10-09] MEDS: heparin, porcine 5000 units/ml vial SQ SCH ×2 (08:01→20:51)
[2017-10-09] MEDS: vancomycin inj 1,250 MG in normal saline 250ml IV soln 250 ML IV SCH (08:01)
[2017-10-09 11:00] VITALS: BP 142/85
[2017-10-09] MEDS: acetaminophen 325mg tablet PO PRN (11:08)
[2017-10-09 16:43] VITALS: BP 126/69
[2017-10-09 18:00] VITALS: BP 118/48
[2017-10-09] MEDS: vancomycin/NS 1 GM ADD-VANTAGE 250 ML IV SCH (20:52)
[2017-10-09] MEDS: insulin glargine (Lantus) pen - multi-dose SQ SCH (20:57)
[2017-10-09 22:00] VITALS: BP 142/76
[2017-10-10] VITALS (7 sets, daily range): BP systolic 112–153; BP diastolic 61–78
[2017-10-10 06:34] LABS: ALANINE AMINOTRANSFERASE 53 U/L (12-78); ALBUMIN 2.3 G/DL (3.4-5.0); ALBUMIN/GLOBULIN RATIO 0.5 (1.1-1.5); ALKALINE PHOSPHATASE 77 IU/L (46-116); ANION GAP 11 (8-16); ASPARTATE AMINO TRANSFERASE 26 U/L (10-37); BILIRUBIN,TOTAL 0.4 MG/DL (0.1-1.0); BLOOD UREA NITROGEN 21 MG/DL (7-18); BUN/CREATININE RATIO 23.3 (6.6-38.0); CALCIUM 8.5 MG/DL (8.5-10.1); CHLORIDE 113 MMOL/L (99-107); GLUCOSE 108 MG/DL (70-104); POTASSIUM 3.4 MMOL/L (3.5-5.1); SODIUM 146 MMOL/L (135-145); TOTAL PROTEIN 7.4 G/DL (6.4-8.2); eGFR 72 ML/MIN
[2017-10-10] MEDS ORDERED: VANCOMYCIN LEVEL IV ONE (07:30)
[2017-10-10] MEDS: K, MAG and/or Phos replacement - Verify level? MC SCH (08:00)
[2017-10-10] MEDS: vancomycin/NS 1 GM ADD-VANTAGE 250 ML IV SCH ×3 (08:22→20:06)
[2017-10-10] MEDS: LACTOBACILLUS RHAMNOSUS GG 15 billion unit sprinkle caps PO SCH (08:22)
[2017-10-10] MEDS: CITALOpram 10mg tablet PO SCH (08:22)
[2017-10-10] MEDS: heparin, porcine 5000 units/ml vial SQ SCH ×2 (08:23→20:06)
[2017-10-10] MEDS ORDERED: fluconazole 100mg tablet PO ONE (10:35)
[2017-10-10] MEDS ORDERED: fluconazole 150mg tablet PO ONE ×2 (11:05→12:45)
[2017-10-10] MEDS ORDERED: potassium Cl 40MEQ/NS 500ml 500 ML IV PRN ×2 (11:35)
[2017-10-10] MEDS ORDERED: potassium Cl 20 mEq SR tablet PO PRN (11:35)
[2017-10-10] MEDS: potassium Cl 20 mEq SR tablet PO PRN ×3 (14:02→22:49)
[2017-10-10] MEDS: insulin glargine (Lantus) pen - multi-dose SQ SCH (21:10)
[2017-10-11 06:00] VITALS: BP 115/69
[2017-10-11] MEDS ORDERED: VANCOMYCIN LEVEL IV ONE (07:30)
[2017-10-11] MEDS: K, MAG and/or Phos replacement - Verify level? MC SCH (08:00)
[2017-10-11] MEDS: vancomycin/NS 1 GM ADD-VANTAGE 250 ML IV SCH (08:00)
[2017-10-11 08:43] LABS: MAGNESIUM 1.4 MG/DL (1.5-2.4); POTASSIUM 3.7 MMOL/L (3.5-5.1)
[2017-10-11 08:50] LABS: VANCOMYCIN,TROUGH 27.9 UG/ML (6.0-14.0)
[2017-10-11] MEDS: LACTOBACILLUS RHAMNOSUS GG 15 billion unit sprinkle caps PO SCH (09:00)
[2017-10-11] MEDS: heparin, porcine 5000 units/ml vial SQ SCH ×2 (09:01→20:32)
[2017-10-11] MEDS ORDERED: magnesium 2GM in 50ml NS 50 ML IV PRN (09:50)
[2017-10-11] MEDS ORDERED: magnesium 4gm in 100ml NS 100 ML IV PRN (09:50)
[2017-10-11 10:00] VITALS: BP 156/68
[2017-10-11] MEDS: magnesium Cl slow-release 64mg tablet PO PRN ×2 (10:14→17:18)
[2017-10-11] MEDS: CITALOpram 10mg tablet PO SCH (10:14)
[2017-10-11 13:23] LABS: ALANINE AMINOTRANSFERASE 60 U/L (12-78); ALBUMIN 2.4 G/DL (3.4-5.0); ALBUMIN/GLOBULIN RATIO 0.5 (1.1-1.5); ALKALINE PHOSPHATASE 85 IU/L (46-116); ANION GAP 10 (8-16); ASPARTATE AMINO TRANSFERASE 28 U/L (10-37); BILIRUBIN,TOTAL 0.4 MG/DL (0.1-1.0); BLOOD UREA NITROGEN 19 MG/DL (7-18); CALCIUM 8.6 MG/DL (8.5-10.1); CHLORIDE 111 MMOL/L (99-107); GLUCOSE 94 MG/DL (70-104); SODIUM 141 MMOL/L (135-145); TOTAL CARBON DIOXIDE 20.3 MMOL/L (24-32); TOTAL PROTEIN 7.6 G/DL (6.4-8.2); eGFR 63 ML/MIN
[2017-10-11 18:00] VITALS: BP 143/82
[2017-10-11] MEDS: insulin glargine (Lantus) pen - multi-dose SQ SCH (20:48)
[2017-10-11 22:03] VITALS: BP 120/59
[2017-10-12 05:33] LABS: BASOPHILS # (AUTO) 0.1 X10'3 (0-0.2); EOSINOPHILS # (AUTO) 0.2 X10'3 (0-0.9); EOSINOPHILS % (AUTO) 3.3 % (0-6); HEMATOCRIT 24.1 % (35.0-45.0); HEMOGLOBIN 8.4 g/dl (12.0-16.0); LYMPHOCYTES # (AUTO) 1.2 X10'3 (1.1-4.8); LYMPHOCYTES % (AUTO) 19.3 % (21-51); MEAN CORPUSCULAR HEMOGLOBIN 29.3 PG (27.0-31.0); MEAN CORPUSCULAR HGB CONC 34.9 % (33.0-36.5); MEAN PLATELET VOLUME 6.6 FL (7.4-10.4); MONOCYTES # (AUTO) 0.5 X10'3 (0-0.9); MONOCYTES % (AUTO) 7.3 % (2-12); NEUTROPHILS # (AUTO) 4.4 X10'3 (1.8-7.7); NEUTROPHILS % (AUTO) 69.1 % (42-75); PLATELET COUNT 420 X10'3 (140-440); RED BLOOD COUNT 2.87 X10'6 (4.20-5.60); WHITE BLOOD COUNT 6.3 X10'3 (4.5-11.0)
[2017-10-12 05:44] LABS: MAGNESIUM 1.4 MG/DL (1.5-2.4); POTASSIUM 3.5 MMOL/L (3.5-5.1)
[2017-10-12 06:00] VITALS: BP 122/62
[2017-10-12] MEDS: LACTOBACILLUS RHAMNOSUS GG 15 billion unit sprinkle caps PO SCH (07:39)
[2017-10-12] MEDS: CITALOpram 10mg tablet PO SCH (07:39)
[2017-10-12] MEDS: magnesium Cl slow-release 64mg tablet PO PRN (07:39)
[2017-10-12] MEDS: heparin, porcine 5000 units/ml vial SQ SCH ×2 (07:40→20:41)
[2017-10-12] MEDS: K, MAG and/or Phos replacement - Verify level? MC SCH (08:00)
[2017-10-12 10:00] VITALS: BP 104/52
[2017-10-12 18:00] VITALS: BP 120/64
[2017-10-12] MEDS: insulin glargine (Lantus) pen - multi-dose SQ SCH (21:00)
[2017-10-12] MEDS ORDERED: insulin glargine (Lantus) pen - multi-dose SQ ONE (21:55)
[2017-10-12 22:00] VITALS: BP 142/77
[2017-10-12] MEDS: acetaminophen 325mg tablet PO PRN (22:20)
[2017-10-13 06:00] VITALS: BP 127/75
[2017-10-13 06:47] LABS: MAGNESIUM 1.6 MG/DL (1.5-2.4); POTASSIUM 3.4 MMOL/L (3.5-5.1); PREALBUMIN 20.3 MG/DL (19-36)
[2017-10-13] MEDS: K, MAG and/or Phos replacement - Verify level? MC SCH (08:00)
[2017-10-13] MEDS: potassium Cl 20 mEq SR tablet PO PRN ×2 (08:42→15:35)
[2017-10-13] MEDS: CITALOpram 10mg tablet PO SCH (08:42)
[2017-10-13] MEDS: LACTOBACILLUS RHAMNOSUS GG 15 billion unit sprinkle caps PO SCH (08:42)
[2017-10-13] MEDS: heparin, porcine 5000 units/ml vial SQ SCH ×2 (08:43→20:10)
[2017-10-13 10:00] VITALS: BP 116/71
[2017-10-13] MEDS ORDERED: potassium Cl 20 mEq SR tablet PO PRN (14:35)
[2017-10-13] MEDS ORDERED: potassium Cl 40MEQ/NS 500ml 500 ML IV PRN ×2 (14:35)
[2017-10-13] MEDS: acetaminophen 325mg tablet PO PRN (16:56)
[2017-10-13 18:00] VITALS: BP 123/78
[2017-10-13] MEDS ORDERED: VANCOMYCIN LEVEL IV NR (19:30)
[2017-10-13 20:17] LABS: ALBUMIN 2.5 G/DL (3.4-5.0); ANION GAP 8 (8-16); BLOOD UREA NITROGEN 17 MG/DL (7-18); BUN/CREATININE RATIO 13.1 (6.6-38.0); CALCIUM 8.8 MG/DL (8.5-10.1); CHLORIDE 106 MMOL/L (99-107); GLUCOSE 113 MG/DL (70-104); POTASSIUM 3.6 MMOL/L (3.5-5.1); SODIUM 139 MMOL/L (135-145); TOTAL CARBON DIOXIDE 25.4 MMOL/L (24-32); VANCOMYCIN,TROUGH 11.5 UG/ML (6.0-14.0); eGFR 47 ML/MIN
[2017-10-13] MEDS: insulin glargine (Lantus) pen - multi-dose SQ SCH (21:00)
[2017-10-13 22:00] VITALS: BP 134/75
[2017-10-14] MEDS: potassium Cl 20 mEq SR tablet PO PRN (00:17)
[2017-10-14 06:53] VITALS: BP 144/84
[2017-10-14] MEDS: K, MAG and/or Phos replacement - Verify level? MC SCH (08:00)
[2017-10-14] MEDS ORDERED: K and/or MAG REPLACEMENT MC SCH (08:00)
[2017-10-14] MEDS: CITALOpram 10mg tablet PO SCH (08:23)
[2017-10-14] MEDS: LACTOBACILLUS RHAMNOSUS GG 15 billion unit sprinkle caps PO SCH (08:23)
[2017-10-14] MEDS: heparin, porcine 5000 units/ml vial SQ SCH (08:24)
[2017-10-14] MEDS: tPA-cathflo 2 MG/2 ml IV flush IVF ONE ×2 (08:30→12:33)
[2017-10-14 08:52] LABS: MAGNESIUM 1.7 MG/DL (1.5-2.4); POTASSIUM 3.9 MMOL/L (3.5-5.1)
[2017-10-14 10:00] VITALS: BP 112/64
[2017-10-18 09:48] LABS: OCCULT BLOOD STOOL NEGATIVE (Neg)
== END 2017-10-14 14:34 | disposition home health service (06) | DRG 720 ==
LOC: ER 17:07 → ED HOLD 22:24 → CICU 2S 09-24 00:37 → PCU 3S 10-06 13:30 → ORTHO 4S 10-10 14:10
PROVIDERS: ADMIT Internal Medicine Critical Care Medicine; ATTEND Internal Medicine
PROC: BW241ZZ Computerized Tomography (CT Scan) of Chest and Abdomen using Low Osmolar Contrast (ICD-10-PCS; principal; 2017-09-24)
PROC: 5A1955Z Respiratory Ventilation, Greater than 96 Consecutive Hours (ICD-10-PCS; 2017-09-24)
PROC: 0BH17EZ Insertion of Endotracheal Airway into Trachea, Via Natural or Artificial Opening (ICD-10-PCS; 2017-09-24)
PROC: 5A1D70Z Performance of Urinary Filtration, Intermittent, Less than 6 Hours Per Day (ICD-10-PCS; 2017-09-30)
PROC: 02HV33Z Insertion of Infusion Device into Superior Vena Cava, Percutaneous Approach (ICD-10-PCS; 2017-10-01)
PROC: 5A1D70Z Performance of Urinary Filtration, Intermittent, Less than 6 Hours Per Day (ICD-10-PCS; 2017-10-02)
PROC: 30233N1 Transfusion of Nonautologous Red Blood Cells into Peripheral Vein, Percutaneous Approach (ICD-10-PCS; 2017-10-04)
DX: A41.02 Sepsis due to Methicillin resistant Staphylococcus aureus (principal); J96.01 Acute respiratory failure with hypoxia; I26.90 Septic pulmonary embolism without acute cor pulmonale; R65.21 Severe sepsis with septic shock; I47.2 Ventricular tachycardia; J15.212 Pneumonia due to Methicillin resistant Staphylococcus aureus; E86.0 Dehydration; N17.9 Acute kidney failure, unspecified; M79.1 Myalgia; Q65.89 Other specified congenital deformities of hip; E11.65 Type 2 diabetes mellitus with hyperglycemia; I38 Endocarditis, valve unspecified; E78.00 Pure hypercholesterolemia, unspecified; E87.0 Hyperosmolality and hypernatremia; E87.2 Acidosis; M00.9 Pyogenic arthritis, unspecified; E87.70 Fluid overload, unspecified; F41.9 Anxiety disorder, unspecified; K76.0 Fatty (change of) liver, not elsewhere classified; F17.200 Nicotine dependence, unspecified, uncomplicated; F32.9 Major depressive disorder, single episode, unspecified; G43.909 Migraine, unspecified, not intractable, without status migrainosus; Z88.0 Allergy status to penicillin; Z88.1 Allergy status to other antibiotic agents; Z79.4 Long term (current) use of insulin; Z79.899 Other long term (current) drug therapy; Z79.1 Long term (current) use of non-steroidal anti-inflammatories (NSAID)
CPT/HCPCS: 36415; 36556; 36569; 36600; 70486; 70490; 70551; 71045; 71250; 71275; 72148; 72195; 73700; 74018; 74176; 76937; 80048; 80053; 80069; 80202; 80305; 80320; 81001; 82150; 82272; 82310; 82330; 82550; 82803; 82810; 82948; 83036; 83605; 83735; 84100; 84132; 84134; 84145; 84439; 84443; 84480; 84484; 85018; 85025; 85379; 85384; 85610; 85730; 86885; 86900; 86901; 86920; 87040; 87070; 87077; 87088; 87186; 87324; 87340; 87449; 87502; 87503; 90935; 92616; 93005; 93306; 93312; 93325; 94002; 94003; 94640; 94760; 95816; 96365; 96367; 96368; 96375; 96376; 97110; 97116; 97162; 97530; 99291; A4649; A6212; A6213; A6222; A6257; A6258; A6402; A6449; A7015; C1751; C1758; C9113; G0257; J0131; J0696; J0712; J0885; J1170; J1644; J1720; J1815; J1940; J1956; J2020; J2150; J2212; J2250; J2270; J2405; J2765; J2997; J3370; J3475; J3480; J3490; J7030; J7042; J7060; P9016; P9045; P9047; Q9963; Q9967

== ENCOUNTER 2018-01-11 08:12 | Day surgery (SDC) | payer MEDICAID ==
[2018-01-05 09:15] LABS: BASOPHILS % (AUTO) 0.6 % (0-1); EOSINOPHILS # (AUTO) 0.2 X10'3 (0-0.9); HEMATOCRIT 32.7 % (35.0-45.0); HEMOGLOBIN 11.4 g/dl (12.0-16.0); LYMPHOCYTES # (AUTO) 2.9 X10'3 (1.1-4.8); LYMPHOCYTES % (AUTO) 37.5 % (21-51); MEAN CORPUSCULAR HEMOGLOBIN 29.8 PG (27.0-31.0); MEAN CORPUSCULAR HGB CONC 34.8 % (33.0-36.5); MEAN CORPUSCULAR VOLUME 85.5 FL (78-98); MEAN PLATELET VOLUME 6.9 FL (7.4-10.4); MONOCYTES # (AUTO) 0.5 X10'3 (0-0.9); MONOCYTES % (AUTO) 6.2 % (2-12); NEUTROPHILS # (AUTO) 4.1 X10'3 (1.8-7.7); NEUTROPHILS % (AUTO) 53.7 % (42-75); PLATELET COUNT 370 X10'3 (140-440); RED BLOOD COUNT 3.83 X10'6 (4.20-5.60); RED CELL DISTRIBUTION WIDTH 13.7 % (11.5-14.5); WHITE BLOOD COUNT 7.7 X10'3 (4.5-11.0)
[2018-01-05 09:19] LABS: PARTIAL THROMBOPLASTIN TIME 29 SECONDS (22-32); PROTHROMBIN TIME 9.9 SECONDS (9.0-12.0)
[2018-01-05 09:23] LABS: ALANINE AMINOTRANSFERASE 29 U/L (12-78); ALBUMIN 4.1 G/DL (3.4-5.0); ALBUMIN/GLOBULIN RATIO 0.8 (1.1-1.5); ALKALINE PHOSPHATASE 65 IU/L (46-116); ANION GAP 10 (8-16); ASPARTATE AMINO TRANSFERASE 15 U/L (10-37); BILIRUBIN,TOTAL 0.2 MG/DL (0.1-1.0); BLOOD UREA NITROGEN 17 MG/DL (7-18); BUN/CREATININE RATIO 22.1 (6.6-38.0); CALCIUM 9.4 MG/DL (8.5-10.1); CHLORIDE 105 MMOL/L (99-107); CREATININE 0.77 MG/DL (0.40-0.90); GLUCOSE 133 MG/DL (70-104); POTASSIUM 4.3 MMOL/L (3.5-5.1); SODIUM 143 MMOL/L (135-145); TOTAL CARBON DIOXIDE 27.9 MMOL/L (24-32); eGFR 86 ML/MIN
[~2018-01-11] VITALS: Ht 172.7 cm; Wt 92.4 kg
[2018-01-11] VITALS (13 sets, daily range): BP systolic 98–116; BP diastolic 53–78
[~2018-01-11 08:12] MED LIST changes: -CYCL-1 PO; +EMPA10TA PO; -GLYB2.5T4 PO; +GLYB5TAB7 PO; +HYDR-565 PO; -HYDR-569 PO; -IBUP-1984 PO; +INSU100C10 SQ; +INSU100I31 SQ; -LORA-512 PO; -METH4TAB3 PO; -NAPR220C15 PO; -ONDA4TAB9 SL; -ROSU20TA PO; -VAL5T PO; -etomidate 2mg/ml inj. ONE; -sod chloride 0.9% 10ml flush syringe IV ONE
[2018-01-11] MEDS ORDERED: diphenhydrAMINE 25mg capsule PO PRN (08:40)
[2018-01-11] MEDS ORDERED: normal saline 1000ml 1,000 ML IV SCH (08:40)
[2018-01-11] MEDS ORDERED: nitroGLYCERIN 0.4mg SUBLingual tab SL PRN (08:40)
[2018-01-11] MEDS ORDERED: LORazepam 0.5 MG tablet PO PRN (08:40)
[2018-01-11] MEDS ORDERED: MESSAGE TO PHARMACY PO ONE (08:45)
[2018-01-11] MEDS ORDERED: insulin Lispro (HumaLOG) vial - multi-dose SQ SCH (08:45)
[2018-01-11] MEDS ORDERED: glucagon, human recombinant 1mg kit SUBCUT PRN (08:45)
[2018-01-11] MEDS ORDERED: dextrose ORAL solution 15 GM/59 ML bottle PO PRN ×2 (08:45)
[2018-01-11] MEDS ORDERED: dextrose 50%-water 50ml dispensing syringe IV PRN ×2 (08:45)
[2018-01-11] MEDS ORDERED: LIDOcaine 1% (10mg/ml) 2ml vial ONE (09:39)
[2018-01-11] MEDS ORDERED: BIOT10006 PO (10:27)
[2018-01-11] MEDS ORDERED: ALBU8HFA PO (10:27)
[2018-01-11] MEDS ORDERED: GABA-532 PO (10:27)
[2018-01-11] MEDS ORDERED: GLUC1CAP33 PO (10:27)
[2018-01-11] MEDS ORDERED: LACT1CAP65 PO (10:27)
[2018-01-11] MEDS ORDERED: MULT-38 PO (10:27)
[2018-01-11] MEDS ORDERED: OXYC-150 PO (10:27)
[2018-01-11] MEDS ORDERED: AMIT25TA10 PO (10:27)
[2018-01-11] MEDS ORDERED: IBUP-1984 PO (10:27)
[2018-01-11] MEDS ORDERED: iohexol 350MG/ML 100ml bottle IV ONE (10:52)
[2018-01-11] MEDS ORDERED: iohexol 350 MG/ML 50ML vial IV ONE (10:52)
[2018-01-11] MEDS ORDERED: LIDOcaine 1% 30ml preserv. free vial ONE (10:53)
[2018-01-11] MEDS ORDERED: midazolam 2 mg/2 ml injection ONE ×2 (11:09→11:20)
[2018-01-11] MEDS ORDERED: fentaNYL/PF 50MCG/1 ML 2ML syringe ONE (11:09)
[2018-01-11] MEDS ORDERED: proCHLORperazine 10 MG/2 ml inj ONE (11:09)
[2018-01-11] MEDS ORDERED: pneumococcal 23-VAL P-sac vacc 25 mcg/0.5ml vial IMVAC ONE (11:30)
[2018-01-11] MEDS ORDERED: OXAZEpam 15mg capsule PO PRN (12:40)
[2018-01-11] MEDS ORDERED: HYDROcodone/acetaminophen 10/325mg tab PO PRN (12:40)
[2018-01-11] MEDS ORDERED: ondansetron/PF 4mg/2ml inj IV PRN (12:40)
[2018-01-11] MEDS ORDERED: proCHLORperazine 10 MG/2 ml inj IV PRN (12:40)
[2018-01-11] MEDS ORDERED: HYDROcodone/acetaminophen 5mg/325mg tablet PO PRN (12:40)
[2018-01-11] MEDS ORDERED: insulin glargine (Lantus) pen - multi-dose SQ SCH (21:00)
== END 2018-01-11 17:45 | disposition home or self-care (01) ==
LOC: SSTAY O 08:12
PROVIDERS: ATTEND Internal Medicine Cardiovascular Disease
DX: I20.8 Other forms of angina pectoris (principal); R94.39 Abnormal result of other cardiovascular function study; I10 Essential (primary) hypertension; E11.9 Type 2 diabetes mellitus without complications; E66.9 Obesity, unspecified; I77.1 Stricture of artery; E78.5 Hyperlipidemia, unspecified; F32.9 Major depressive disorder, single episode, unspecified; J45.998 Other asthma; Z98.51 Tubal ligation status; Z86.14 Personal history of Methicillin resistant Staphylococcus aureus infection; Z72.89 Other problems related to lifestyle; Z68.31 Body mass index [BMI] 31.0-31.9, adult; Z79.4 Long term (current) use of insulin; Z79.1 Long term (current) use of non-steroidal anti-inflammatories (NSAID); Z87.891 Personal history of nicotine dependence; Z90.49 Acquired absence of other specified parts of digestive tract; Z79.891 Long term (current) use of opiate analgesic; Z88.0 Allergy status to penicillin; Z88.1 Allergy status to other antibiotic agents; Z79.899 Other long term (current) drug therapy; Z98.890 Other specified postprocedural states
CPT/HCPCS: 36415; 71046; 80053; 82948; 85025; 85610; 85730; 93005; 93458; 99152; 99153; A6257; C1760; C1769; J0780; J1644; J2250; J3010; J3490; J7030; Q0163; Q9967; A4620

== ENCOUNTER 2023-08-23 08:19 | Emergency (ER) | payer MEDICAID ==
[~2023-08-23] VITALS: Ht 172.7 cm; Wt 87.5 kg
[~2023-08-23 08:19] MED LIST changes: +ALBU8HFA PO; +AMIT25TA10 PO; +BIOT10006 PO; -EMPA10TA PO; +GABA-532 PO; +GLUC1CAP33 PO; -HYDR-565 PO; +IBUP-1984 PO; -INSU100C10 SQ; -INSU100I31 SQ; +LACT1CAP65 PO; +MULT-38 PO; +OXYC-150 PO
[2023-08-23 08:24] VITALS: TEMP 98
[2023-08-23 09:00] LABS: URINE HCG NEGATIVE (NEG)
[2023-08-23 09:07] LABS: BASOPHILS % (AUTO) 0.6 % (0-1); EOSINOPHILS # (AUTO) 0.1 X10'3 (0-0.9); EOSINOPHILS % (AUTO) 1.4 % (0-6); HEMOGLOBIN 13.3 g/dl (12.0-16.0); LYMPHOCYTES # (AUTO) 2.4 X10'3 (1.1-4.8); LYMPHOCYTES % (AUTO) 31.6 % (21-51); MEAN CORPUSCULAR HEMOGLOBIN 30.2 PG (27.0-31.0); MEAN CORPUSCULAR HGB CONC 34.2 g/dL (33.0-36.5); MEAN CORPUSCULAR VOLUME 88.2 FL (78-98); MEAN PLATELET VOLUME 7.1 FL (7.4-10.4); MONOCYTES # (AUTO) 0.5 X10'3 (0-0.9); NEUTROPHILS # (AUTO) 4.5 X10'3 (1.8-7.7); NEUTROPHILS % (AUTO) 59.4 % (42-75); PLATELET COUNT 313 X10'3 (140-440); RED BLOOD COUNT 4.41 X10'6 (4.20-5.60); RED CELL DISTRIBUTION WIDTH 13.5 % (11.5-14.5); WHITE BLOOD COUNT 7.6 X10'3 (4.5-11.0)
[2023-08-23 09:19] LABS: ALANINE AMINOTRANSFERASE 21 U/L (12-78); ALBUMIN 4.2 G/DL (3.4-5.0); ALBUMIN/GLOBULIN RATIO 1.1 (1.1-1.5); ALKALINE PHOSPHATASE 58 IU/L (46-116); ANION GAP 7 (8-16); ASPARTATE AMINO TRANSFERASE 18 U/L (10-37); BILIRUBIN,TOTAL 0.2 MG/DL (0.1-1.0); BLOOD UREA NITROGEN 17 MG/DL (7-18); BUN/CREATININE RATIO 20.5 (10.0-20.0); CALCIUM 8.9 MG/DL (8.5-10.1); CHLORIDE 102 MMOL/L (99-107); CREATININE 0.83 MG/DL (0.40-0.90); GLUCOSE 161 MG/DL (70-104); LIPASE 138 U/L (16-77); POTASSIUM 4.5 MMOL/L (3.5-5.1); SODIUM 137 MMOL/L (135-145); TOTAL PROTEIN 8.1 G/DL (6.4-8.2); eCRCL 91 ML/MIN; eGFR 76 ML/MIN
[2023-08-23 09:24] LABS: BILIRUBIN,URINE NEGATIVE (Neg); CLARITY,URINE CLEAR (Clear); COLOR,URINE STRAW (Yellow); GLUCOSE, URINE 100 mg/dl (Neg); KETONES,URINE NEGATIVE (Neg); LEUKOCYTE ESTERASE ,URINE NEGATIVE (Neg); NITRITES, URINE NEGATIVE (Neg); OCCULT BLOOD,URINE TRACE-INTACT (Neg); PROTEIN,URINE NEGATIVE (Neg); UROBILINOGEN,URINE 0.2 E.U/dL (0.2-1.0)
[2023-08-23 09:35] LABS: UA COLLECTION TYPE CLN CATCH MIDSTREAM
[2023-08-23 09:44] LABS: RBC,URINE 0-2 /HPF (0-2); SQUAMOUS EPITHELIAL CELL,UR MANY /LPF (FEW); WBC,URINE NONE SEEN /HPF (0-4)
[2023-08-23 09:45] LABS: BACTERIA,URINE NONE SEEN /HPF (Neg)
[2023-08-23] MEDS ORDERED: iohexol 300mg/ml 100ml inj. ONE (10:03)
[2023-08-23 11:46] VITALS: BP 114/70; PULSE 62; RESP 16; O2SAT 99
== END 2023-08-23 11:48 | disposition home or self-care (01) ==
LOC: ER 08:20
DX: R10.31 Right lower quadrant pain (principal); R11.2 Nausea with vomiting, unspecified; G43.909 Migraine, unspecified, not intractable, without status migrainosus; E78.00 Pure hypercholesterolemia, unspecified; E11.22 Type 2 diabetes mellitus with diabetic chronic kidney disease; N18.9 Chronic kidney disease, unspecified; Z86.14 Personal history of Methicillin resistant Staphylococcus aureus infection; Z88.0 Allergy status to penicillin; Z88.1 Allergy status to other antibiotic agents; Z79.899 Other long term (current) drug therapy
CPT/HCPCS: 36415; 74177; 80053; 81001; 81025; 83690; 85025; 99285; J3490; Q9967